=== PATIENT | female | born 1945 | race Hispanic/Latino ===

== ENCOUNTER 2017-10-04 04:24 | Emergency (ER) | payer MEDICARE, OTHER ==
[~2017-10-04] VITALS: Ht 152.4 cm; Wt 65.9 kg
[~2017-10-04 04:24] MED LIST: ALDACTONE25 MG PO; AMLODIPINE BESYL5 MG PO; AMLODIPINE10 MG PO; ASPIRIN EC81 MG PO; BUPROPION150 M4 PO; CARVEDILOL25 MG PO; K-DUR/KLOR-CON20 MEQ PO; LANTUS100 MG/ML SC; LASIX 20 MG20 MG/TAB PO; LEVEMIR1000 UNITS SC; LISINOPRIL20 M1 PO; LISINOPRIL20 MG PO; NOVOLO1 SC; NYSTATIN TOP; PREVACID15 M3 PO; SIMVASTATIN20 MG PO
[2017-10-04 05:03] LABS: HEMATOCRIT 37.5 % (37.0-47.0); HEMOGLOBIN 12.7 g/dl (12.0-16.0); IMMATURE GRANULOCYTES 0.3 % (0.0-1.0); MEAN CELL VOLUME 88.2 fL CALC (80.0-100.0); MEAN CORPUSCULAR HGB 29.9 pG CALC (26.0-32.0); MEAN CORPUSCULAR HGB CONC 33.9 g/L CALC (32.0-36.0); NEUT# 5.33 thou/uL (2.00-7.15); RED BLOOD COUNT 4.25 mill/uL (4.20-5.60); RED CELL DISTRI WIDTH 13.3 % (11.5-15.5); URINE BILIRUBIN - DIPSTICK NEGATIVE (NEGATIVE); URINE BLOOD DIPSTICK MODERATE (NEGATIVE); URINE COLOR YELLOW; URINE GLUCOSE - DIPSTICK >=1000 mg/dL (NEGATIVE); URINE KETONE NEGATIVE (NEGATIVE); URINE LEUK ESTERASE NEGATIVE (NEGATIVE); URINE NITRITE - DIPSTICK NEGATIVE (Negative); URINE PH 6.5 (4.5-8.0); URINE PROTEIN - DIPSTICK 100 mg/dL (NEG-TRACE)
[2017-10-04 05:09] LABS: URINE CLARITY SL CLOUDY
[2017-10-04 05:13] LABS: BARBITURATES NEGATIVE (NEGATIVE); COCAINE POSITIVE (NEGATIVE); METHADONE NEGATIVE (NEGATIVE); OXCYCODONE NEGATIVE (NEGATIVE); TETRAHYDROCANNABIONOL NEGATIVE (NEGATIVE); TRICYLIC ANTIDEPRESSANTS NEGATIVE (NEGATIVE)
[2017-10-04 05:19] LABS: ALBUMIN 3.5 g/dL (3.2-5.0); BILIRUBIN, TOTAL 0.8 mg/dL (0.0-1.4); CALCIUM 9.5 mg/dL (8.4-10.2); CREATININE 1.1 mg/dL (0.5-1.0); POTASSIUM 4.2 mmol/l (3.5-5.1); TOTAL PROTEIN 7.1 g/dL (6.3-8.2)
[2017-10-04 05:22] LABS: URINE BACTERIA FEW hpf; URINE MUCUS FEW hpf (NONE-FEW); URINE SQUAMOUS EPITHELIAL CELL FEW EPI/hpf (0-FEW)
[2017-10-04 05:41] LABS: PROTHROMBIN TIME 11.4 SECONDS (9.0-12.5)
[2017-10-04 10:46] VITALS: BP 155/72
== END 2017-10-04 10:46 | disposition short-term general hospital (02) ==
LOC: ED 04:24
PROVIDERS: Emergency Medicine
PROC: 0T9B70Z Drainage of Bladder with Drainage Device, Via Natural or Artificial Opening (ICD-10-PCS; principal; 2017-10-04)
DX: I63.9 Cerebral infarction, unspecified (principal); E11.65 Type 2 diabetes mellitus with hyperglycemia; I11.0 Hypertensive heart disease with heart failure; I50.9 Heart failure, unspecified; J44.9 Chronic obstructive pulmonary disease, unspecified; N28.9 Disorder of kidney and ureter, unspecified; I42.9 Cardiomyopathy, unspecified; F17.210 Nicotine dependence, cigarettes, uncomplicated

== ENCOUNTER 2018-01-05 17:30 | Inpatient (IN) | payer MEDICARE, OTHER ==
[~2018-01-05] VITALS: Ht 152.4 cm; Wt 61.2 kg
[2018-01-05 18:28] LABS: HEMATOCRIT 34.6 % (37.0-47.0); HEMOGLOBIN 11.6 g/dl (12.0-16.0); IMMATURE GRANULOCYTES 0.2 % (0.0-1.0); MEAN CELL VOLUME 91.1 fL CALC (80.0-100.0); MEAN CORPUSCULAR HGB 30.5 pG CALC (26.0-32.0); MEAN CORPUSCULAR HGB CONC 33.5 g/L CALC (32.0-36.0); NEUT# 4.08 thou/uL (2.00-7.15); RED BLOOD COUNT 3.8 mill/uL (4.20-5.60); RED CELL DISTRI WIDTH 13.5 % (11.5-15.5)
[2018-01-05 18:48] LABS: ALKALINE PHOSPHATASE 87 u/l (38-126); ANION GAP 11 (6-22 (CALC)); BILIRUBIN, TOTAL 0.4 mg/dL (0.0-1.4); BUN 30 mg/dL (8-23); BUN/CREATININE RATIO 32 (12-20 (CALC)); CARBON DIOXIDE 22 mmol/l (22-30); CHLORIDE 115 mmol/l (95-108); GFR 55 ML/MIN (>=60 (CALC)); GFR FOR AFR.AMER. > 60 ML/MIN (>=60 (CALC)); POTASSIUM 3.6 mmol/l (3.5-5.1); SGOT/AST 39 u/l (9-36); SGPT/ALT 40 u/l (11-66); SODIUM 143 mmol/l (137-146)
[2018-01-05 18:50] LABS: ALBUMIN 2.6 g/dL (3.2-5.0)
[2018-01-06] VITALS (7 sets, daily range): BP systolic 141–182; BP diastolic 40–76
[2018-01-06 09:27] LABS: HEMATOCRIT 29.7 % (37.0-47.0); MEAN CELL VOLUME 91.1 fL CALC (80.0-100.0); MEAN CORPUSCULAR HGB 30.7 pG CALC (26.0-32.0); MEAN CORPUSCULAR HGB CONC 33.7 g/L CALC (32.0-36.0); RED BLOOD COUNT 3.26 mill/uL (4.20-5.60); RED CELL DISTRI WIDTH 13.6 % (11.5-15.5)
[2018-01-06 09:47] LABS: MAGNESIUM 1.7 mg/dL (1.6-2.3)
[2018-01-06 13:52] LABS: URINE BILIRUBIN - DIPSTICK NEGATIVE (NEGATIVE); URINE BLOOD DIPSTICK TRACE-INTACT (NEGATIVE); URINE COLOR YELLOW; URINE GLUCOSE - DIPSTICK NEGATIVE (NEGATIVE); URINE KETONE NEGATIVE (NEGATIVE); URINE NITRITE - DIPSTICK NEGATIVE (Negative); URINE PH 8.5 (4.5-8.0); URINE PROTEIN - DIPSTICK 100 mg/dL (NEG-TRACE); URINE UROBILINOGEN - DIPSTICK 0.2 E.U./dL (0.2)
[2018-01-06 13:53] LABS: URINE CLARITY CLOUDY; URINE LEUK ESTERASE MODERATE (NEGATIVE)
[2018-01-06 13:54] LABS: URINE BACTERIA MANY hpf; URINE EPITHELIAL CELLS MODERATE EPI/hpf (0-FEW); URINE MUCUS FEW hpf (NONE-FEW); URINE RBC 0-2 RBC/hpf (0-5); URINE WBC 20-50 WBC/hpf (0-5)
[2018-01-06 14:35] LABS: CREATININE 1.1 mg/dL (0.5-1.0)
[2018-01-07] VITALS (7 sets, daily range): BP systolic 158–186; BP diastolic 57–75
[2018-01-07 05:10] LABS: HEMATOCRIT 29.4 % (37.0-47.0); HEMOGLOBIN 10.1 g/dl (12.0-16.0); IMMATURE GRANULOCYTES 0.3 % (0.0-1.0); MEAN CELL VOLUME 88.8 fL CALC (80.0-100.0); MEAN CORPUSCULAR HGB 30.5 pG CALC (26.0-32.0); MEAN CORPUSCULAR HGB CONC 34.4 g/L CALC (32.0-36.0); NEUT# 5.42 thou/uL (2.00-7.15); RED BLOOD COUNT 3.31 mill/uL (4.20-5.60)
[2018-01-07 05:39] LABS: CREATININE 1.3 mg/dL (0.5-1.0); POTASSIUM 4.8 mmol/l (3.5-5.1)
[2018-01-08] VITALS (9 sets, daily range): BP systolic 166–190; BP diastolic 43–75
[2018-01-08] MEDS ORDERED: ATIVAN0.5 MG PO (02:47)
[2018-01-08] MEDS ORDERED: CATAPRES0.1 MG PO (02:48)
[2018-01-08] MEDS ORDERED: AMLODIPINE5 MG PO (02:48)
[2018-01-08] MEDS ORDERED: ZESTRIL/PRINIV2.5 MG PO (02:49)
[2018-01-08] MEDS ORDERED: METOPROLOL SUCC50 MG PO (02:49)
[2018-01-08] MEDS ORDERED: XIFAXAN550 MG PO (02:50)
[2018-01-08] MEDS ORDERED: OXYBUTYNIN5 MG PO (02:50)
[2018-01-08] MEDS ORDERED: DOXAZOSIN2 M1 PO (02:50)
[2018-01-08] MEDS ORDERED: LACTULOSE10 GM/15 M PO (02:51)
[2018-01-08] MEDS ORDERED: PROAIR HFA108 MCG/AC (02:56)
[2018-01-08] MEDS ORDERED: LEVEMIR FL100 UNIT/M SC (02:57)
[2018-01-08 05:06] LABS: HEMATOCRIT 31.3 % (37.0-47.0); HEMOGLOBIN 10.7 g/dl (12.0-16.0); IMMATURE GRANULOCYTES 0.5 % (0.0-1.0); MEAN CELL VOLUME 90.2 fL CALC (80.0-100.0); MEAN CORPUSCULAR HGB 30.8 pG CALC (26.0-32.0); MEAN CORPUSCULAR HGB CONC 34.2 g/L CALC (32.0-36.0); NEUT# 8.23 thou/uL (2.00-7.15); RED BLOOD COUNT 3.47 mill/uL (4.20-5.60); RED CELL DISTRI WIDTH 13.3 % (11.5-15.5)
[2018-01-08 05:38] LABS: CREATININE 1.2 mg/dL (0.5-1.0)
[2018-01-08 05:46] LABS: MAGNESIUM 2.2 mg/dL (1.6-2.3); POTASSIUM 5.2 mmol/l (3.5-5.1)
[2018-01-09] VITALS (12 sets, daily range): BP systolic 138–203; BP diastolic 47–89
[2018-01-09 05:49] LABS: HEMATOCRIT 37.2 % (37.0-47.0); HEMOGLOBIN 12.2 g/dl (12.0-16.0); IMMATURE GRANULOCYTES 0.6 % (0.0-1.0); MEAN CELL VOLUME 92.5 fL CALC (80.0-100.0); MEAN CORPUSCULAR HGB 30.3 pG CALC (26.0-32.0); MEAN CORPUSCULAR HGB CONC 32.8 g/L CALC (32.0-36.0); NEUT# 7.8 thou/uL (2.00-7.15); RED BLOOD COUNT 4.02 mill/uL (4.20-5.60); RED CELL DISTRI WIDTH 13.6 % (11.5-15.5)
[2018-01-09 05:52] LABS: CREATININE 1.3 mg/dL (0.5-1.0); POTASSIUM 4.2 mmol/l (3.5-5.1)
[2018-01-09] MEDS ORDERED: MEDDOSEPAK PO (10:57)
[2018-01-09] MEDS ORDERED: ATIVAN0.5 MG PO (10:57)
[2018-01-09] MEDS ORDERED: LISINOPRIL20 M1 PO (10:57)
[2018-01-09] MEDS ORDERED: DOXYCYCL HYC100 MG PO (10:57)
[2018-01-09] MEDS ORDERED: QUETIAPINE FUMA25 MG PO (10:57)
[2018-01-09] MEDS ORDERED: VANTIN100 MG PO (11:01)
[2018-01-10] VITALS (8 sets, daily range): BP systolic 139–202; BP diastolic 52–74
== END 2018-01-10 18:15 | DRG 637 ==
LOC: ED 17:30 → ED-I 22:30 → ED 23:59 → MS2 01-06
PROVIDERS: Emergency Medicine; Nurse Practitioner Family; ADMIT Hospitalist; ATTEND Internal Medicine
DX: E11.649 Type 2 diabetes mellitus with hypoglycemia without coma (principal); G93.41 Metabolic encephalopathy; N39.0 Urinary tract infection, site not specified; I13.0 Hypertensive heart and chronic kidney disease with heart failure and stage 1 through stage 4 chronic kidney disease, or unspecified chronic kidney disease; I50.9 Heart failure, unspecified; E11.22 Type 2 diabetes mellitus with diabetic chronic kidney disease; E11.65 Type 2 diabetes mellitus with hyperglycemia; I42.9 Cardiomyopathy, unspecified; N18.3 Chronic kidney disease, stage 3 (moderate); J44.1 Chronic obstructive pulmonary disease with (acute) exacerbation; I16.0 Hypertensive urgency; F17.210 Nicotine dependence, cigarettes, uncomplicated; D63.8 Anemia in other chronic diseases classified elsewhere; F03.90 Unspecified dementia, unspecified severity, without behavioral disturbance, psychotic disturbance, mood disturbance, and anxiety; K70.40 Alcoholic hepatic failure without coma; F10.11 Alcohol abuse, in remission; B96.4 Proteus (mirabilis) (morganii) as the cause of diseases classified elsewhere; Z79.4 Long term (current) use of insulin
CPT/HCPCS: G0378

== ENCOUNTER 2018-03-09 13:23 | Inpatient (IN) | payer MEDICARE, OTHER ==
[~2018-03-09] VITALS: Ht 152.4 cm; Wt 53.0 kg
[~2018-03-09 13:23] MED LIST changes: +AMLODIPINE5 MG PO; +ATIVAN0.5 MG PO; +CATAPRES0.1 MG PO; +DOXAZOSIN2 M1 PO; +DOXYCYCL HYC100 MG PO; +LACTULOSE10 GM/15 M PO; +LEVEMIR FL100 UNIT/M SC; +MEDDOSEPAK PO; +METOPROLOL SUCC50 MG PO; +OXYBUTYNIN5 MG PO; +PROAIR HFA108 MCG/AC; +QUETIAPINE FUMA25 MG PO; +VANTIN100 MG PO; +XIFAXAN550 MG PO; +ZESTRIL/PRINIV2.5 MG PO
--- NOTE | 2018-03-09 13:23 | NUR ---
TO ROOM 15 VIA STRETCHER BY EMS
--- NOTE | 2018-03-09 14:07 | NUR ---
PT STATES THAT HER TOE HAS BEEN BLACKENED FOR A WEEK. PT IS AOX2, PT IS NORMAL MENTATION PER EMS AND FLAT GRINDER OPERATOR. PT DENIES ANY SOB, N/V OR C/P, PT HAS POOR SKIN CONDITION OF LOWER EXTREMITES. PT HAS A WET COUGH.
[2018-03-09 14:14] LABS: HEMATOCRIT 32.8 % (37.0-47.0); HEMOGLOBIN 11.1 g/dl (12.0-16.0); IMMATURE GRANULOCYTES 0.4 % (0.0-1.0); MEAN CELL VOLUME 89.1 fL CALC (80.0-100.0); MEAN CORPUSCULAR HGB 30.2 pG CALC (26.0-32.0); MEAN CORPUSCULAR HGB CONC 33.8 g/L CALC (32.0-36.0); NEUT# 5.61 thou/uL (2.00-7.15); RED BLOOD COUNT 3.68 mill/uL (4.20-5.60); RED CELL DISTRI WIDTH 13.7 % (11.5-15.5)
[2018-03-09] MEDS ORDERED: ZESTRIL40 MG PO (14:18)
[2018-03-09] MEDS ORDERED: ASPIRIN81 MG PO (14:19)
[2018-03-09] MEDS ORDERED: MAXZIDE-2537.5 MG/TA PO (14:19)
[2018-03-09 14:30] LABS: ALBUMIN 3.1 g/dL (3.2-5.0); BILIRUBIN, TOTAL 0.8 mg/dL (0.0-1.4); CREATININE 1.3 mg/dL (0.5-1.0); POTASSIUM 4.9 mmol/l (3.5-5.1)
--- NOTE | 2018-03-09 15:07 | NUR ---
PT RESTING ON STRETCHER WITH FLUIDS RUNNING, IV PATENT, PT STATES NO COMPLAINTS AT THIS TIME. VITALS BEING CONTINUOULY MONITORED.
--- NOTE | 2018-03-09 15:27 | NUR ---
PT PLACED ON BED MURPHY AND PROVIDED URINE SAMPLE
--- NOTE | 2018-03-09 16:02 | NUR ---
SPOKE WITH [facility]- RN STATES DR SARAVIA IS ON THE FLOOR AND REVIEWING BLOOD FLOW STUDY, IF THEIR IS BLOOD FLOW INSUFFIENCY HE WANTS THE PT TRANSFERRED ER-ER.
[2018-03-09 16:11] LABS: URINE BILIRUBIN - DIPSTICK NEGATIVE (NEGATIVE); URINE BLOOD DIPSTICK NEGATIVE (NEGATIVE); URINE COLOR YELLOW; URINE GLUCOSE - DIPSTICK >=1000 mg/dL (NEGATIVE); URINE KETONE NEGATIVE (NEGATIVE); URINE LEUK ESTERASE NEGATIVE (NEGATIVE); URINE NITRITE - DIPSTICK NEGATIVE (Negative); URINE PH 5.5 (4.5-8.0); URINE PROTEIN - DIPSTICK 30 mg/dL (NEG-TRACE); URINE SPECIFIC GRAVITY <=1.005; URINE UROBILINOGEN - DIPSTICK 0.2 E.U./dL (0.2)
[2018-03-09 16:12] LABS: URINE CLARITY CLEAR
--- NOTE | 2018-03-09 16:35 | NUR ---
PT RETURNED FROM U/S. SIGNAL TOWER OPERATOR AT BEDSIDE FOR EXAM
--- NOTE | 2018-03-09 17:10 | NUR ---
PT ADMITTED TO [facility] VIA STRETCHER ACCOMPANIED BY STAFF. PT ALERT TO SELF AND PLACE ABLE TO ANSWER SOME QUESTIONS. PT HAS DENUDED/REDNESS TO BUTTOCK AND CARISSA AREA. PHOTOS OBTAINED SEE CHART. PT STATES SHE HAS NOT HAD A BM IN A WEEK ORDERS PROVIDED BY . STAT GLUCOSE OBTAINED 452. PT HAS A NON-PRODUCTIVE COUGH. PT PROVIDED WITH A DINNER TRAY, ABLE TO FEED SELF. ADMISSION ASSESSMENT COMPLETED. CALL LIGHT IN REACH, BED ALARM X1, CONTINUE TO MONITOR.
--- NOTE | 2018-03-09 17:15 | NUR ---
Admission Note Report Given to: JOSE C PARKER Transported by: Wheelchair X Stretcher Transported with: X Nurse Transporter X Patent IV O2 Bobcat Operator PT TRANSPORTED TO [facility] WITHOUT INCIDENT
[2018-03-09 17:26] VITALS: BP 153/46
[2018-03-09 19:00] VITALS: BP 168/57
--- NOTE | 2018-03-09 19:30 | NUR ---
PATIENT RESTING IN BED-AWAKE ALERT-ORIENTED TO PERSON WITH FLAT AFFECT. NOT APPROPRIATE WHEN ASKED QUESTIONS. FLAT AFFECT-FINISHED MIRALAX ORDERED. IV SITE TO RIGHT UPPER ARM INTACT AND APPEARS HEALTHY AT THIS TIME WITH IVF NS PATENT AND INFUSING AT 100CC/HR. DRESSING TO RIGHT FOOT CDI AT THIS TIME. FOUL ODOR NOTED FROM RIGHT FOOT. SAFETY PRECAUTIONS REINFORCED. BED ALARM IN PLACE FOR PATIENT SAFETY. CALL LIGHT IN REACH. WILL CONT TO MONITOR.
--- NOTE | 2018-03-09 21:10 | NUR ---
PATIENT RESTING IN BED-BS-411. COVERED WITH 10 UNITS OF NOVALOG PER SLIDING SCALE COVERAGE. HS SNACK PROVIDED. DR. SHARP NOTIFIED OF ELEVATED BS. PATIENT WITH NO COMPLAINTS. SAFETY PRRECAUTIONS REINFORCED. CALL LIGHT IN REACH. WILL CONT TO MONITOR.
[2018-03-09 21:59] LABS: URINE MUCUS FEW hpf (NONE-FEW); URINE SQUAMOUS EPITHELIAL CELL FEW EPI/hpf (0-FEW)
--- NOTE | 2018-03-10 00:12 | NUR ---
PATIENT APPEARS SLEEPING AT THIS TIME WITH HOB ELEVATED AND EYES CLOSED. BED ALARMS IN PLACE. IVF PATENT AND INFUSING AT 100CC/HR. BED ALARMS IN PLACE. CALL LIGHT IN REACH. WILL CONT TO MONITOR.
--- NOTE | 2018-03-10 03:29 | NUR ---
PATIENT FOUND TRYING TO GET OUT THE SIDE OF THE BED. PATIENT FOUND TO BE INCONT OF MODERATE AMT OF URINE. PATIENT IS MAX ASSIST TO THE BSC. BED LINENS WERE CHANGED. PATIENT WAS BATHED AND CARISSA-CARE GIVEN. PATIENT WITH EXCORIATED AREA OF BUTTOCKS, THIGHS AND PERINEAL AREA. WASHED THROUGHLY WITH SOAP AND WATER. MAX ASSIST BACK TO THE BED. BARRIER CREAM APPLIED TO AFFECTED AREA. FINGER NAILS WERE CLEANED USING ORANGE STICK. PATIENT CONT TO ANSWER QUESTIONS WITH ONE WORD ANSWERS. MOSTLY NON-VERBAL. IVF NS PATENT AND INFUSING RIGHT UPPER ARM SITE. REMAINS HEALTHY AT THIS TIME. BED ALARMS IN PLACE. CALL LIGHT IN REACH. WILL CONT TO MONITOR.
[2018-03-10 04:09] VITALS: BP 169/64
--- NOTE | 2018-03-10 04:51 | NUR ---
PATIENT IS MORE ALERT THIS MORNING-ANSWERING QUESTIONS WHEN ASKED. ORIENTED TO PERSON AND PLACE. TAKING ALEXANDRA CRACKER AND PO FLUIDS WHEN OFFERED. DRESSING TO RIGHT FOOT REMAINS INTACT SECURED WITH SLIPPER SOCK. IVF NS PATENT AND INFUSING AT 100CC/HR VIA RIGHT UPPER ARM SITE. SITE APPEARS HEALTHY AT THIS TIME. BED ALARM IN PLACE FOR PATIENT SAFETY. CALL LIGHT IN REACH. WILL CONT TO MONITOR.
[2018-03-10 05:11] LABS: HEMATOCRIT 31.1 % (37.0-47.0); HEMOGLOBIN 10.7 g/dl (12.0-16.0); MEAN CELL VOLUME 87.1 fL CALC (80.0-100.0); MEAN CORPUSCULAR HGB CONC 34.4 g/L CALC (32.0-36.0); RED BLOOD COUNT 3.57 mill/uL (4.20-5.60); RED CELL DISTRI WIDTH 13.7 % (11.5-15.5)
[2018-03-10 05:25] LABS: CREATININE 1.2 mg/dL (0.5-1.0); POTASSIUM 4.4 mmol/l (3.5-5.1)
--- NOTE | 2018-03-10 05:44 | NUR ---
GLUCOSE 43 ON LAB DRAW. [id number]. PATIENT AWAKE ALERT. SKIN IS WARM AND DRY. PATIENT TAKING OJ 6OZ WITH SUGAR PACKETS WITH ALEXANDRA CRACKERS AND PEANUT NUT. WILL RECHECK IN [address] FOR PATIENT SAFETY. WILL CONT TO MONITOR.
--- NOTE | 2018-03-10 06:15 | NUR ---
BS-121 AT THIS TIME-WILL CONT TO MONITOR. BED ALARM IN PLACE FOR PATIENT SAFETY. CALL LIGHT IN REACH. WILL CONT TO MONITOR.
[2018-03-10 07:25] VITALS: BP 125/41
--- NOTE | 2018-03-10 07:25 | NUR ---
PT IS RESTING WITH EYES CLOSED. IV SITE IS FREE FROM REDNESS OR EDEMA. HR IS REG, PULSES ARE STRONG X4, ABD IS SOFT WITH ACTIVE BS. DRESSING ON R FOOT IS CDI. CONTINUE TO OBSERVE AND MONITOR.
--- NOTE | 2018-03-10 12:00 | NUR ---
PT IS RELAXING IN BED WITH NO DISTRESS NOTED. IV SITE IS FREE FROM REDNESS OR EDEMA,
[2018-03-10 15:21] VITALS: BP 145/52
--- NOTE | 2018-03-10 15:30 | NUR ---
PT WILL BE PICKED UP AT 1630 FOR TRANSPORT TO [facility].
--- NOTE | 2018-03-10 15:34 | NUR ---
SPOKE WITH SISTER RE: PT BEING TRANSPORTED TO [facility] AROUND 1630. WANTS TO BE CALLED WHEN SHE ARRIVES THERE.
--- NOTE | 2018-03-10 18:48 | NUR ---
GAVE REPORT TO BISHNU KNOX AT [facility]. IV SITE IS FLUSHED. [facility] HERE TO TRANSPORT PT. Discharge instructions given. Patient verbalizes understanding of same. Discharged in stable condition via Medical Transport to *Other with *Other. All belongings sent with pt.
--- NOTE | 2018-03-10 18:53 | NUR ---
INFORMED SISTER RE PT LEAVING WITH [facility]
== END 2018-03-10 18:54 | DRG 300 ==
LOC: ED 13:23 → ED-I 14:36 → ED 15:02 → MS2 15:03
PROVIDERS: Emergency Medicine; ADMIT Internal Medicine; ATTEND Internal Medicine
DX: E11.52 Type 2 diabetes mellitus with diabetic peripheral angiopathy with gangrene (principal); I96 Gangrene, not elsewhere classified; I16.0 Hypertensive urgency; I13.0 Hypertensive heart and chronic kidney disease with heart failure and stage 1 through stage 4 chronic kidney disease, or unspecified chronic kidney disease; E11.42 Type 2 diabetes mellitus with diabetic polyneuropathy; E11.22 Type 2 diabetes mellitus with diabetic chronic kidney disease; I50.9 Heart failure, unspecified; I42.9 Cardiomyopathy, unspecified; E11.65 Type 2 diabetes mellitus with hyperglycemia; E11.621 Type 2 diabetes mellitus with foot ulcer; J44.9 Chronic obstructive pulmonary disease, unspecified; F17.210 Nicotine dependence, cigarettes, uncomplicated; N18.3 Chronic kidney disease, stage 3 (moderate); L97.519 Non-pressure chronic ulcer of other part of right foot with unspecified severity; L97.529 Non-pressure chronic ulcer of other part of left foot with unspecified severity; D63.1 Anemia in chronic kidney disease; F03.90 Unspecified dementia, unspecified severity, without behavioral disturbance, psychotic disturbance, mood disturbance, and anxiety; Z79.4 Long term (current) use of insulin; Z91.14 Patient's other noncompliance with medication regimen

== ENCOUNTER 2018-06-23 15:37 | Emergency (ER) | payer MEDICARE, OTHER ==
[~2018-06-23] VITALS: Ht 152.4 cm; Wt 63.6 kg
[~2018-06-23 15:37] MED LIST changes: +ASPIRIN81 MG PO; +MAXZIDE-2537.5 MG/TA PO; +ZESTRIL40 MG PO
[2018-06-23 16:27] LABS: HEMATOCRIT 29.1 % (37.0-47.0); HEMOGLOBIN 9.8 g/dl (12.0-16.0); IMMATURE GRANULOCYTES 0.5 % (0.0-5.0); MEAN CORPUSCULAR HGB 32.5 pG CALC (26.0-32.0); MEAN CORPUSCULAR HGB CONC 33.7 g/L CALC (32.0-36.0); NEUT# 3.9 thou/uL (2.00-7.15); RED BLOOD COUNT 3.02 mill/uL (4.20-5.60); RED CELL DISTRI WIDTH 13.2 % (11.5-15.5)
[2018-06-23 16:28] LABS: MEAN CELL VOLUME 96.4 fL CALC (80.0-100.0)
[2018-06-23 16:37] LABS: ALBUMIN 2.9 g/dL (3.2-5.0); ALKALINE PHOSPHATASE 111 u/l (38-126); ANION GAP 11 (6-22 (CALC)); BILIRUBIN, TOTAL 0.3 mg/dL (0.0-1.4); BUN 20 mg/dL (8-23); BUN/CREATININE RATIO 26 (12-20 (CALC)); CARBON DIOXIDE 25 mmol/l (22-30); CHLORIDE 113 mmol/l (95-108); CREATININE 0.8 mg/dL (0.5-1.0); GFR > 60 ML/MIN (>=60 (CALC)); GFR FOR AFR.AMER. > 60 ML/MIN (>=60 (CALC)); POTASSIUM 3.8 mmol/l (3.5-5.1); SGOT/AST 44 u/l (9-36); SGPT/ALT 46 u/l (11-66); TOTAL PROTEIN 6.3 g/dL (6.3-8.2)
[2018-06-23 16:40] LABS: SODIUM 145 mmol/l (137-146)
[2018-06-23 19:38] VITALS: BP 173/64
== END 2018-06-23 19:39 ==
LOC: ED 15:37
PROVIDERS: Emergency Medicine
DX: T87.44 Infection of amputation stump, left lower extremity (principal); J06.9 Acute upper respiratory infection, unspecified; E11.9 Type 2 diabetes mellitus without complications; J44.9 Chronic obstructive pulmonary disease, unspecified; I11.0 Hypertensive heart disease with heart failure; I50.9 Heart failure, unspecified; I42.9 Cardiomyopathy, unspecified; F17.210 Nicotine dependence, cigarettes, uncomplicated; Y83.5 Amputation of limb(s) as the cause of abnormal reaction of the patient, or of later complication, without mention of misadventure at the time of the procedure; Z89.422 Acquired absence of other left toe(s); Z89.611 Acquired absence of right leg above knee

== ENCOUNTER → 2018-12-10 | Outpatient (REF) | payer MEDICARE, OTHER ==
[2018-12-10 12:23] LABS: HEMATOCRIT 38.9 % (37.0-47.0); HEMOGLOBIN 13.1 g/dl (12.0-16.0); IMMATURE GRANULOCYTES 0.2 % (0.0-5.0); MEAN CELL VOLUME 91.7 fL CALC (80.0-100.0); MEAN CORPUSCULAR HGB 30.9 pG CALC (26.0-32.0); MEAN CORPUSCULAR HGB CONC 33.7 g/L CALC (32.0-36.0); NEUT# 3.18 thou/uL (2.00-7.15); RED BLOOD COUNT 4.24 mill/uL (4.20-5.60); RED CELL DISTRI WIDTH 12.9 % (11.5-15.5)
[2018-12-10 12:44] LABS: ALBUMIN 3.4 g/dL (3.2-5.0); ALKALINE PHOSPHATASE 101 u/l (38-126); ANION GAP 12 (6-22 (CALC)); BILIRUBIN, TOTAL 0.7 mg/dL (0.0-1.4); BUN 28 mg/dL (8-23); BUN/CREATININE RATIO 26 (12-20 (CALC)); CALCULATED LDLCHOLESTEROL 50 mg/dL (62-129 (CALC)); CARBON DIOXIDE 30 mmol/l (22-30); CHLORIDE 100 mmol/l (95-108); CHOLESTEROL HDL RATIO 1.9 (<4.4 (CALC)); CREATININE 1.1 mg/dL (0.5-1.0); GFR 49 ML/MIN (>=60 (CALC)); GFR FOR AFR.AMER. 59 ML/MIN (>=60 (CALC)); HDL CHOLESTEROL 70 mg/dL (>=40); POTASSIUM 4.3 mmol/l (3.5-5.1); SGOT/AST 38 u/l (9-36); SODIUM 138 mmol/l (137-146); TOTAL CHOLESTEROL 136 mg/dl (0-199); TOTAL PROTEIN 6.7 g/dL (6.3-8.2); TOTAL TRIGLYCERIDES 77 mg/dl (30-149); VLDL CHOLESTROL 15 mg/dl (0-48 (CALC))
[2018-12-10 13:15] LABS: TSH, 3RD GENERATION 1.77 uIU/mL (0.47 - 4.68)
== END | disposition home or self-care (01) ==
LOC: LAB 10:26
PROVIDERS: ATTEND Internal Medicine
DX: E78.00 Pure hypercholesterolemia, unspecified (principal); E11.9 Type 2 diabetes mellitus without complications; J44.9 Chronic obstructive pulmonary disease, unspecified; Z11.59 Encounter for screening for other viral diseases

== ENCOUNTER 2019-04-19 08:48 | Observation (INO) | payer MEDICARE, OTHER ==
[~2019-04-19] VITALS: Ht 152.4 cm; Wt 52.0 kg
[2019-04-19 09:22] LABS: HEMATOCRIT 36.7 % (37.0-47.0); HEMOGLOBIN 12.3 g/dl (12.0-16.0); IMMATURE GRANULOCYTES 0.4 % (0.0-5.0); MEAN CELL VOLUME 94.6 fL CALC (80.0-100.0); MEAN CORPUSCULAR HGB 31.7 pG CALC (26.0-32.0); MEAN CORPUSCULAR HGB CONC 33.5 g/L CALC (32.0-36.0); NEUT# 4.07 thou/uL (2.00-7.15); RED BLOOD COUNT 3.88 mill/uL (4.20-5.60); RED CELL DISTRI WIDTH 13.2 % (11.5-15.5)
[2019-04-19 09:30] LABS: ALBUMIN 3.7 g/dL (3.2-5.0); ALKALINE PHOSPHATASE 87 u/l (38-126); ANION GAP 12 (6-22 (CALC)); BILIRUBIN, TOTAL 0.5 mg/dL (0.0-1.4); BUN 32 mg/dL (8-23); BUN/CREATININE RATIO 40 (12-20 (CALC)); CHLORIDE 109 mmol/l (95-108); CREATININE 0.8 mg/dL (0.5-1.0); GFR > 60 ML/MIN (>=60 (CALC)); GFR FOR AFR.AMER. > 60 ML/MIN (>=60 (CALC)); SGOT/AST 47 u/l (9-36); SODIUM 138 mmol/l (137-146); TOTAL PROTEIN 7.4 g/dL (6.3-8.2)
[2019-04-19 09:32] LABS: CARBON DIOXIDE 21 mmol/l (22-30)
[2019-04-19 10:19] LABS: URINE BILIRUBIN - DIPSTICK NEGATIVE (NEGATIVE); URINE BLOOD DIPSTICK SMALL (NEGATIVE); URINE COLOR YELLOW; URINE GLUCOSE - DIPSTICK 250 mg/dL (NEGATIVE); URINE KETONE NEGATIVE (NEGATIVE); URINE LEUK ESTERASE TRACE (Negative); URINE NITRITE - DIPSTICK POSITIVE (Negative); URINE PH 5.5 (4.5-8.0); URINE PROTEIN - DIPSTICK 100 mg/dL (NEG-TRACE); URINE UROBILINOGEN - DIPSTICK 0.2 E.U./dL (0.2)
[2019-04-19 10:21] LABS: URINE CLARITY CLOUDY
[2019-04-19 10:25] LABS: URINE BACTERIA MANY hpf; URINE SQUAMOUS EPITHELIAL CELL FEW EPI/hpf (0-FEW)
[2019-04-19 13:15] VITALS: BP 190/75
[2019-04-19 14:26] VITALS: BP 169/61
[2019-04-19 16:14] VITALS: BP 150/68
[2019-04-19 19:00] VITALS: BP 142/53
[2019-04-19 23:42] VITALS: BP 138/57
[2019-04-20] VITALS (7 sets, daily range): BP systolic 123–163; BP diastolic 46–62
[2019-04-20 04:52] LABS: IMMATURE GRANULOCYTES 0.2 % (0.0-5.0); MEAN CELL VOLUME 95.2 fL CALC (80.0-100.0); MEAN CORPUSCULAR HGB 32.2 pG CALC (26.0-32.0); MEAN CORPUSCULAR HGB CONC 33.8 g/L CALC (32.0-36.0); NEUT# 2.89 thou/uL (2.00-7.15); RED BLOOD COUNT 3.11 mill/uL (4.20-5.60); RED CELL DISTRI WIDTH 13.4 % (11.5-15.5)
[2019-04-20 04:56] LABS: HEMATOCRIT 29.6 % (37.0-47.0)
[2019-04-20 05:14] LABS: ANION GAP 10 (6-22 (CALC)); BUN 28 mg/dL (8-23); BUN/CREATININE RATIO 32 (12-20 (CALC)); CARBON DIOXIDE 20 mmol/l (22-30); CHLORIDE 110 mmol/l (95-108); CREATININE 0.9 mg/dL (0.5-1.0); GFR > 60 ML/MIN (>=60 (CALC)); GFR FOR AFR.AMER. > 60 ML/MIN (>=60 (CALC)); MAGNESIUM 1.9 mg/dL (1.6-2.3); POTASSIUM 3.8 mmol/l (3.5-5.1); SODIUM 136 mmol/l (137-146)
[2019-04-20] MEDS ORDERED: LACTULOSE PO (13:46)
[2019-04-20] MEDS ORDERED: VENTOLIN HFA IN (13:47)
[2019-04-20] MEDS ORDERED: ADVAIR DISK1 IN (13:48)
[2019-04-20] MEDS ORDERED: FUROSEMIDE20 MG PO (13:48)
[2019-04-20] MEDS ORDERED: LEVEMIR100 UNIT/M SC (13:48)
[2019-04-20] MEDS ORDERED: NORVASC5 M1 PO (13:49)
[2019-04-20] MEDS ORDERED: LISINOPRIL20 MG PO (13:49)
[2019-04-20] MEDS ORDERED: NOVOLOG100 UNIT/M SC (13:50)
[2019-04-20] MEDS ORDERED: CLONIDINE0.1 MG PO (13:51)
[2019-04-20] MEDS ORDERED: LIPITOR40 M1 PO (13:52)
[2019-04-21] VITALS (9 sets, daily range): BP systolic 145–189; BP diastolic 47–81
[2019-04-22 03:53] VITALS: BP 136/56
[2019-04-22 07:20] VITALS: BP 193/54
[2019-04-22] MEDS ORDERED: KEFLEX500 MG PO (08:18)
[2019-04-22 11:06] VITALS: BP 180/60
[2019-04-22 13:00] VITALS: BP 153/70
== END 2019-04-22 15:54 | disposition home health service (06) ==
LOC: ED 08:48 → ED-I 11:26 → ED 12:00 → MS2 12:01
PROVIDERS: Emergency Medicine; Nurse Practitioner Family; ADMIT Internal Medicine; ATTEND Internal Medicine
DX: E11.649 Type 2 diabetes mellitus with hypoglycemia without coma (principal); N39.0 Urinary tract infection, site not specified; I16.0 Hypertensive urgency; I13.0 Hypertensive heart and chronic kidney disease with heart failure and stage 1 through stage 4 chronic kidney disease, or unspecified chronic kidney disease; I42.9 Cardiomyopathy, unspecified; I50.9 Heart failure, unspecified; E11.22 Type 2 diabetes mellitus with diabetic chronic kidney disease; N18.3 Chronic kidney disease, stage 3 (moderate); F03.90 Unspecified dementia, unspecified severity, without behavioral disturbance, psychotic disturbance, mood disturbance, and anxiety; G93.41 Metabolic encephalopathy; E11.51 Type 2 diabetes mellitus with diabetic peripheral angiopathy without gangrene; B96.20 Unspecified Escherichia coli [E. coli] as the cause of diseases classified elsewhere; J43.9 Emphysema, unspecified; F17.200 Nicotine dependence, unspecified, uncomplicated; Z89.612 Acquired absence of left leg above knee; Z79.4 Long term (current) use of insulin; Z89.611 Acquired absence of right leg above knee
CPT/HCPCS: J1650

== ENCOUNTER 2019-06-01 08:05 | Observation (INO) | payer MEDICARE, OTHER ==
[~2019-06-01] VITALS: Ht 152.4 cm; Wt 52.4 kg
[~2019-06-01 08:05] MED LIST changes: +ADVAIR DISK1 IN; +CLONIDINE0.1 MG PO; +FUROSEMIDE20 MG PO; +KEFLEX500 MG PO; +LACTULOSE PO; +LEVEMIR100 UNIT/M SC; +LIPITOR40 M1 PO; +NORVASC5 M1 PO; +NOVOLOG100 UNIT/M SC; +VENTOLIN HFA IN
[2019-06-01 09:20] LABS: HEMATOCRIT 34.3 % (37.0-47.0); HEMOGLOBIN 11.7 g/dl (12.0-16.0); IMMATURE GRANULOCYTES 0.5 % (0.0-5.0); MEAN CELL VOLUME 93.5 fL CALC (80.0-100.0); MEAN CORPUSCULAR HGB 31.9 pG CALC (26.0-32.0); MEAN CORPUSCULAR HGB CONC 34.1 g/L CALC (32.0-36.0); NEUT# 5.7 thou/uL (2.00-7.15); RED BLOOD COUNT 3.67 mill/uL (4.20-5.60); RED CELL DISTRI WIDTH 13.3 % (11.5-15.5)
[2019-06-01 09:33] LABS: ALBUMIN 3.7 g/dL (3.2-5.0); ALKALINE PHOSPHATASE 103 u/l (38-126); ANION GAP 14 (6-22 (CALC)); BUN 32 mg/dL (8-23); BUN/CREATININE RATIO 32 (12-20 (CALC)); CARBON DIOXIDE 19 mmol/l (22-30); CHLORIDE 112 mmol/l (95-108); GFR 54 ML/MIN (>=60 (CALC)); GFR FOR AFR.AMER. > 60 ML/MIN (>=60 (CALC)); POTASSIUM 4.4 mmol/l (3.5-5.1); SGOT/AST 45 u/l (9-36); SODIUM 141 mmol/l (137-146); TOTAL PROTEIN 7.6 g/dL (6.3-8.2)
[2019-06-01 10:58] LABS: URINE BILIRUBIN - DIPSTICK NEGATIVE (NEGATIVE); URINE BLOOD DIPSTICK MODERATE (NEGATIVE); URINE COLOR YELLOW; URINE GLUCOSE - DIPSTICK 100 mg/dL (NEGATIVE); URINE KETONE TRACE mg/dL (NEGATIVE); URINE NITRITE - DIPSTICK NEGATIVE (Negative); URINE PH 5.5 (4.5-8.0); URINE PROTEIN - DIPSTICK 100 mg/dL (NEG-TRACE); URINE SPECIFIC GRAVITY >=1.030
[2019-06-01 11:07] LABS: URINE LEUK ESTERASE TRACE (NEGATIVE)
[2019-06-01 11:08] LABS: BARBITURATES NEGATIVE (NEGATIVE); COCAINE NEGATIVE (NEGATIVE); METHADONE NEGATIVE (NEGATIVE); OXCYCODONE NEGATIVE (NEGATIVE); TETRAHYDROCANNABIONOL NEGATIVE (NEGATIVE); TRICYLIC ANTIDEPRESSANTS NEGATIVE (NEGATIVE); URINE EPITHELIAL CELLS MANY EPI/hpf (0-FEW); URINE WBC 0-2 WBC/hpf (0-5)
[2019-06-01 13:22] VITALS: BP 193/60
[2019-06-01 15:10] VITALS: BP 173/60
[2019-06-01 18:55] VITALS: BP 133/49
[2019-06-01 20:29] VITALS: BP 148/59
[2019-06-02] VITALS (7 sets, daily range): BP systolic 152–194; BP diastolic 55–71
[2019-06-02 05:15] LABS: HEMATOCRIT 31.7 % (37.0-47.0); HEMOGLOBIN 10.6 g/dl (12.0-16.0); IMMATURE GRANULOCYTES 0.5 % (0.0-5.0); MEAN CELL VOLUME 95.2 fL CALC (80.0-100.0); MEAN CORPUSCULAR HGB 31.8 pG CALC (26.0-32.0); MEAN CORPUSCULAR HGB CONC 33.4 g/L CALC (32.0-36.0); NEUT# 5.72 thou/uL (2.00-7.15); RED BLOOD COUNT 3.33 mill/uL (4.20-5.60); RED CELL DISTRI WIDTH 13.6 % (11.5-15.5)
[2019-06-02 05:21] LABS: ALBUMIN 3.2 g/dL (3.2-5.0); BILIRUBIN, TOTAL 0.9 mg/dL (0.0-1.4); CREATININE 1.2 mg/dL (0.5-1.0); TOTAL PROTEIN 6.6 g/dL (6.3-8.2)
[2019-06-02] MEDS ORDERED: ADVAIR DISK1 IN (12:42)
[2019-06-02] MEDS ORDERED: AMLODIPINE BESY10 MG PO (12:43)
[2019-06-02] MEDS ORDERED: LIPITOR40 M1 PO (12:46)
[2019-06-02] MEDS ORDERED: CLONIDINE HYDR0.1 M1 PO (12:48)
[2019-06-02] MEDS ORDERED: LASIX 40 MG TAB40 MG PO (12:50)
[2019-06-02] MEDS ORDERED: LACTULOSE10 GM/15 M PO (12:52)
[2019-06-02] MEDS ORDERED: LEVEMIR FL100 UNIT/M SC (12:54)
[2019-06-02] MEDS ORDERED: NOVOLOG FL100 UNIT/M SC (12:56)
[2019-06-02] MEDS ORDERED: QUETIAPINE FUMA25 MG (12:56)
[2019-06-02] MEDS ORDERED: VENTOLIN HFA IN (13:00)
[2019-06-03 01:22] VITALS: BP 178/71
[2019-06-03 03:51] VITALS: BP 187/72
[2019-06-03 05:15] VITALS: BP 173/58
[2019-06-03 05:18] LABS: HEMATOCRIT 31.6 % (37.0-47.0); HEMOGLOBIN 10.5 g/dl (12.0-16.0); MEAN CELL VOLUME 94.3 fL CALC (80.0-100.0); MEAN CORPUSCULAR HGB 31.3 pG CALC (26.0-32.0); MEAN CORPUSCULAR HGB CONC 33.2 g/L CALC (32.0-36.0); RED BLOOD COUNT 3.35 mill/uL (4.20-5.60); RED CELL DISTRI WIDTH 13.4 % (11.5-15.5)
[2019-06-03 05:29] LABS: ANION GAP 11 (6-22 (CALC)); BUN 36 mg/dL (8-23); BUN/CREATININE RATIO 38 (12-20 (CALC)); CARBON DIOXIDE 21 mmol/l (22-30); CHLORIDE 110 mmol/l (95-108); CREATININE 0.9 mg/dL (0.5-1.0); GFR > 60 ML/MIN (>=60 (CALC)); GFR FOR AFR.AMER. > 60 ML/MIN (>=60 (CALC)); POTASSIUM 4.2 mmol/l (3.5-5.1); SODIUM 137 mmol/l (137-146)
[2019-06-03 07:50] VITALS: BP 105/39
[2019-06-03 11:40] VITALS: BP 134/56
[2019-06-03] MEDS ORDERED: TRAMADOL HCL50 MG PO (11:43)
== END 2019-06-03 15:15 | disposition home health service (06) ==
LOC: ED 08:05 → ED-I 11:30 → ED 11:50 → MS2 11:51
PROVIDERS: Emergency Medicine; Internal Medicine; ADMIT Internal Medicine; ATTEND Internal Medicine
PROC: 0T9B70Z Drainage of Bladder with Drainage Device, Via Natural or Artificial Opening (ICD-10-PCS; principal; 2019-06-01)
DX: S72.141A Displaced intertrochanteric fracture of right femur, initial encounter for closed fracture (principal); I16.0 Hypertensive urgency; I13.0 Hypertensive heart and chronic kidney disease with heart failure and stage 1 through stage 4 chronic kidney disease, or unspecified chronic kidney disease; I50.9 Heart failure, unspecified; E11.22 Type 2 diabetes mellitus with diabetic chronic kidney disease; N18.3 Chronic kidney disease, stage 3 (moderate); E11.65 Type 2 diabetes mellitus with hyperglycemia; E11.51 Type 2 diabetes mellitus with diabetic peripheral angiopathy without gangrene; J43.9 Emphysema, unspecified; I42.9 Cardiomyopathy, unspecified; F03.90 Unspecified dementia, unspecified severity, without behavioral disturbance, psychotic disturbance, mood disturbance, and anxiety; R21 Rash and other nonspecific skin eruption; F17.200 Nicotine dependence, unspecified, uncomplicated; W05.0XXA Fall from non-moving wheelchair, initial encounter; Z89.612 Acquired absence of left leg above knee; Z79.4 Long term (current) use of insulin; Z89.611 Acquired absence of right leg above knee; Z74.01 Bed confinement status
CPT/HCPCS: J1650

== ENCOUNTER 2019-06-04 16:56 | Observation (INO) | payer MEDICARE, OTHER ==
[~2019-06-04] VITALS: Ht 152.4 cm; Wt 51.6 kg
[~2019-06-04 16:56] MED LIST changes: +AMLODIPINE BESY10 MG PO; +CLONIDINE HYDR0.1 M1 PO; +LASIX 40 MG TAB40 MG PO; +NOVOLOG FL100 UNIT/M SC; +QUETIAPINE FUMA25 MG; +TRAMADOL HCL50 MG PO
[2019-06-04 17:52] LABS: HEMATOCRIT 25.7 % (37.0-47.0); IMMATURE GRANULOCYTES 0.6 % (0.0-5.0); MEAN CELL VOLUME 97.3 fL CALC (80.0-100.0); MEAN CORPUSCULAR HGB 31.8 pG CALC (26.0-32.0); MEAN CORPUSCULAR HGB CONC 32.7 g/L CALC (32.0-36.0); NEUT# 12.01 thou/uL (2.00-7.15); RED BLOOD COUNT 2.64 mill/uL (4.20-5.60); RED CELL DISTRI WIDTH 13.6 % (11.5-15.5)
[2019-06-04 17:53] LABS: HEMOGLOBIN 8.4 g/dl (12.0-16.0)
[2019-06-04 17:54] LABS: URINE BILIRUBIN - DIPSTICK NEGATIVE (NEGATIVE); URINE BLOOD DIPSTICK SMALL (NEGATIVE); URINE COLOR YELLOW; URINE GLUCOSE - DIPSTICK 250 mg/dL (NEGATIVE); URINE KETONE NEGATIVE (NEGATIVE); URINE PH 5.5 (4.5-8.0); URINE PROTEIN - DIPSTICK 100 mg/dL (NEG-TRACE); URINE SPECIFIC GRAVITY 1.025; URINE UROBILINOGEN - DIPSTICK >=8.0 E.U./dL (0.2)
[2019-06-04 17:58] LABS: BARBITURATES NEGATIVE (NEGATIVE); COCAINE NEGATIVE (NEGATIVE); METHADONE NEGATIVE (NEGATIVE); TETRAHYDROCANNABIONOL NEGATIVE (NEGATIVE); TRICYLIC ANTIDEPRESSANTS NEGATIVE (NEGATIVE)
[2019-06-04 17:59] LABS: OXCYCODONE NEGATIVE (NEGATIVE); URINE LEUK ESTERASE SMALL (NEGATIVE); URINE NITRITE - DIPSTICK POSITIVE (Negative)
[2019-06-04 18:01] LABS: URINE BACTERIA FEW hpf; URINE SQUAMOUS EPITHELIAL CELL FEW EPI/hpf (0-FEW); URINE WBC 50-100 WBC/hpf (0-5)
[2019-06-04 18:11] LABS: ALBUMIN 3.7 g/dL (3.2-5.0); BILIRUBIN, TOTAL 1.1 mg/dL (0.0-1.4); CREATININE 1.2 mg/dL (0.5-1.0); POTASSIUM 4.5 mmol/l (3.5-5.1); TOTAL PROTEIN 7.5 g/dL (6.3-8.2)
[2019-06-04 20:03] VITALS: BP 157/53
[2019-06-05 00:14] VITALS: BP 178/53
[2019-06-05 04:30] VITALS: BP 163/64
[2019-06-05 05:13] LABS: HEMATOCRIT 29.7 % (37.0-47.0); HEMOGLOBIN 9.8 g/dl (12.0-16.0); IMMATURE GRANULOCYTES 0.4 % (0.0-5.0); MEAN CELL VOLUME 96.4 fL CALC (80.0-100.0); MEAN CORPUSCULAR HGB 31.8 pG CALC (26.0-32.0); PLATELET COUNT 177 thou/uL (130-400); RED BLOOD COUNT 3.08 mill/uL (4.20-5.60); RED CELL DISTRI WIDTH 13.5 % (11.5-15.5)
[2019-06-05 05:31] LABS: CREATININE 1.1 mg/dL (0.5-1.0); POTASSIUM 4.8 mmol/l (3.5-5.1)
[2019-06-05 05:38] LABS: BAND 1 % (0-8); MANUAL DIFFERENTIAL YES
[2019-06-05 07:43] VITALS: BP 180/55
[2019-06-05 11:09] VITALS: BP 175/71
[2019-06-05 16:01] VITALS: BP 178/64
[2019-06-05 19:48] VITALS: BP 153/64
[2019-06-06 00:43] VITALS: BP 168/63
[2019-06-06 04:58] VITALS: BP 171/69
[2019-06-06 08:22] VITALS: BP 182/55
[2019-06-06 13:46] VITALS: BP 141/59
[2019-06-06 14:30] VITALS: BP 165/61
[2019-06-06 19:50] VITALS: BP 141/57
[2019-06-07 03:45] VITALS: BP 170/62
[2019-06-07 05:10] LABS: HEMATOCRIT 28.6 % (37.0-47.0); HEMOGLOBIN 9.7 g/dl (12.0-16.0); IMMATURE GRANULOCYTES 0.5 % (0.0-5.0); MEAN CELL VOLUME 94.7 fL CALC (80.0-100.0); MEAN CORPUSCULAR HGB 32.1 pG CALC (26.0-32.0); MEAN CORPUSCULAR HGB CONC 33.9 g/L CALC (32.0-36.0); NEUT# 4.03 thou/uL (2.00-7.15); RED BLOOD COUNT 3.02 mill/uL (4.20-5.60); RED CELL DISTRI WIDTH 13.2 % (11.5-15.5)
[2019-06-07 05:37] LABS: ANION GAP 10 (6-22 (CALC)); BUN 20 mg/dL (8-23); BUN/CREATININE RATIO 30 (12-20 (CALC)); CARBON DIOXIDE 22 mmol/l (22-30); CHLORIDE 109 mmol/l (95-108); CREATININE 0.7 mg/dL (0.5-1.0); GFR > 60 ML/MIN (>=60 (CALC)); GFR FOR AFR.AMER. > 60 ML/MIN (>=60 (CALC)); SODIUM 138 mmol/l (137-146)
[2019-06-07 05:39] LABS: POTASSIUM 3.4 mmol/l (3.5-5.1)
[2019-06-07 09:03] VITALS: BP 177/77
[2019-06-07 10:25] VITALS: BP 182/61
[2019-06-07 14:20] VITALS: BP 150/53
[2019-06-07 19:33] VITALS: BP 181/64
[2019-06-07 23:03] VITALS: BP 165/64
[2019-06-08 05:44] VITALS: BP 185/53
[2019-06-08 06:18] VITALS: BP 177/55
[2019-06-08 07:43] VITALS: BP 187/59
[2019-06-08 09:01] VITALS: BP 187/59
[2019-06-08] MEDS ORDERED: KEFLEX500 MG PO (11:39)
== END 2019-06-08 15:40 | disposition home health service (06) ==
LOC: ED 16:56 → ED-I 17:37 → ED 18:43 → MS2 18:44
PROVIDERS: Family Medicine; Internal Medicine; ADMIT Internal Medicine; ATTEND Internal Medicine
DX: N39.0 Urinary tract infection, site not specified (principal); G93.41 Metabolic encephalopathy; I16.1 Hypertensive emergency; I13.0 Hypertensive heart and chronic kidney disease with heart failure and stage 1 through stage 4 chronic kidney disease, or unspecified chronic kidney disease; E11.22 Type 2 diabetes mellitus with diabetic chronic kidney disease; I50.9 Heart failure, unspecified; N18.3 Chronic kidney disease, stage 3 (moderate); E11.51 Type 2 diabetes mellitus with diabetic peripheral angiopathy without gangrene; I42.9 Cardiomyopathy, unspecified; J43.9 Emphysema, unspecified; D63.8 Anemia in other chronic diseases classified elsewhere; F17.200 Nicotine dependence, unspecified, uncomplicated; F03.90 Unspecified dementia, unspecified severity, without behavioral disturbance, psychotic disturbance, mood disturbance, and anxiety; B96.20 Unspecified Escherichia coli [E. coli] as the cause of diseases classified elsewhere; S72.141D Displaced intertrochanteric fracture of right femur, subsequent encounter for closed fracture with routine healing; X58.XXXD Exposure to other specified factors, subsequent encounter; Z89.612 Acquired absence of left leg above knee; Z89.611 Acquired absence of right leg above knee; Z79.4 Long term (current) use of insulin; Z74.01 Bed confinement status

== ENCOUNTER 2019-09-02 12:15 | Observation (INO) | payer MEDICARE, OTHER ==
[~2019-09-02] VITALS: Ht 152.4 cm; Wt 60.0 kg
[~2019-09-02 12:15] MED LIST changes: -AMLODIPINE BESY10 MG PO; -CLONIDINE HYDR0.1 M1 PO
[2019-09-02 13:18] LABS: HEMATOCRIT 34.5 % (37.0-47.0); HEMOGLOBIN 11.3 g/dl (12.0-16.0); IMMATURE GRANULOCYTES 0.3 % (0.0-5.0); MEAN CELL VOLUME 95.8 fL CALC (80.0-100.0); MEAN CORPUSCULAR HGB 31.4 pG CALC (26.0-32.0); MEAN CORPUSCULAR HGB CONC 32.8 g/L CALC (32.0-36.0); NEUT# 4.6 thou/uL (2.00-7.15); RED BLOOD COUNT 3.6 mill/uL (4.20-5.60); RED CELL DISTRI WIDTH 14.2 % (11.5-15.5)
[2019-09-02 14:11] LABS: ALKALINE PHOSPHATASE 89 u/l (38-126); BUN 15 mg/dL (8-23); BUN/CREATININE RATIO 18 (12-20 (CALC)); CARBON DIOXIDE 22 mmol/l (22-30); CHLORIDE 106 mmol/l (95-108); CREATININE 0.9 mg/dL (0.5-1.0); GFR > 60 ML/MIN (>=60 (CALC)); GFR FOR AFR.AMER. > 60 ML/MIN (>=60 (CALC)); SGOT/AST 34 u/l (9-36); SODIUM 135 mmol/l (137-146); TOTAL PROTEIN 6.3 g/dL (6.3-8.2)
[2019-09-02 14:20] LABS: ALBUMIN 2.9 g/dL (3.2-5.0); ANION GAP 12 (6-22 (CALC)); BILIRUBIN, TOTAL 0.6 mg/dL (0.0-1.4); POTASSIUM 4.7 mmol/l (3.5-5.1)
[2019-09-02 20:00] VITALS: BP 193/87
[2019-09-02 22:00] VITALS: BP 165/69
[2019-09-03] VITALS (13 sets, daily range): BP systolic 131–193; BP diastolic 45–77
[2019-09-03 06:08] LABS: HEMATOCRIT 31.9 % (37.0-47.0); HEMOGLOBIN 10.4 g/dl (12.0-16.0); MEAN CELL VOLUME 95.8 fL CALC (80.0-100.0); MEAN CORPUSCULAR HGB 31.2 pG CALC (26.0-32.0); MEAN CORPUSCULAR HGB CONC 32.6 g/L CALC (32.0-36.0); RED BLOOD COUNT 3.33 mill/uL (4.20-5.60); RED CELL DISTRI WIDTH 14.1 % (11.5-15.5)
[2019-09-03 06:21] LABS: CREATININE 1.2 mg/dL (0.5-1.0)
[2019-09-03 06:27] LABS: POTASSIUM 5.2 mmol/l (3.5-5.1)
[2019-09-04] VITALS (9 sets, daily range): BP systolic 122–164; BP diastolic 43–64
[2019-09-04 05:19] LABS: HEMATOCRIT 31.4 % (37.0-47.0); HEMOGLOBIN 10.1 g/dl (12.0-16.0); MEAN CELL VOLUME 96.9 fL CALC (80.0-100.0); MEAN CORPUSCULAR HGB 31.2 pG CALC (26.0-32.0); MEAN CORPUSCULAR HGB CONC 32.2 g/L CALC (32.0-36.0); RED BLOOD COUNT 3.24 mill/uL (4.20-5.60); RED CELL DISTRI WIDTH 14.2 % (11.5-15.5)
[2019-09-04 05:32] LABS: CREATININE 1.2 mg/dL (0.5-1.0); POTASSIUM 4.3 mmol/l (3.5-5.1)
== END 2019-09-04 18:30 | disposition short-term general hospital (02) ==
LOC: ED 12:15 → ED-I 15:07 → ED 15:15 → ICU 15:16
PROVIDERS: Emergency Medicine; ADMIT Internal Medicine; ATTEND Internal Medicine
DX: I48.91 Unspecified atrial fibrillation (principal); I13.0 Hypertensive heart and chronic kidney disease with heart failure and stage 1 through stage 4 chronic kidney disease, or unspecified chronic kidney disease; I50.9 Heart failure, unspecified; E11.22 Type 2 diabetes mellitus with diabetic chronic kidney disease; N18.3 Chronic kidney disease, stage 3 (moderate); E11.51 Type 2 diabetes mellitus with diabetic peripheral angiopathy without gangrene; R79.89 Other specified abnormal findings of blood chemistry; J43.9 Emphysema, unspecified; I42.9 Cardiomyopathy, unspecified; F03.90 Unspecified dementia, unspecified severity, without behavioral disturbance, psychotic disturbance, mood disturbance, and anxiety; F17.210 Nicotine dependence, cigarettes, uncomplicated; Z79.4 Long term (current) use of insulin; Z89.611 Acquired absence of right leg above knee; Z89.612 Acquired absence of left leg above knee
CPT/HCPCS: J1650

== ENCOUNTER 2019-09-07 20:22 | Inpatient (IN) | payer MEDICARE, OTHER ==
[~2019-09-07] VITALS: Ht 152.4 cm; Wt 46.0 kg
[2019-09-07 20:00] VITALS: BP 179/65
[2019-09-07 23:05] VITALS: BP 185/60
[2019-09-08] VITALS (17 sets, daily range): BP systolic 118–196; BP diastolic 42–88
[2019-09-08 05:06] LABS: HEMATOCRIT 35.2 % (37.0-47.0); HEMOGLOBIN 11.6 g/dl (12.0-16.0); MEAN CELL VOLUME 94.9 fL CALC (80.0-100.0); MEAN CORPUSCULAR HGB 31.3 pG CALC (26.0-32.0); RED BLOOD COUNT 3.71 mill/uL (4.20-5.60); RED CELL DISTRI WIDTH 13.5 % (11.5-15.5)
[2019-09-08 05:15] LABS: ANION GAP 9 (6-22 (CALC)); BUN 16 mg/dL (8-23); BUN/CREATININE RATIO 18 (12-20 (CALC)); CARBON DIOXIDE 26 mmol/l (22-30); CHLORIDE 107 mmol/l (95-108); CREATININE 0.9 mg/dL (0.5-1.0); GFR > 60 ML/MIN (>=60 (CALC)); GFR FOR AFR.AMER. > 60 ML/MIN (>=60 (CALC)); POTASSIUM 4.2 mmol/l (3.5-5.1); SODIUM 139 mmol/l (137-146)
[2019-09-09] VITALS (28 sets, daily range): BP systolic 96–181; BP diastolic 45–78
[2019-09-10] VITALS: BP 120/44
[2019-09-10 02:00] VITALS: BP 132/46
[2019-09-10 04:00] VITALS: BP 138/56
[2019-09-10 06:00] VITALS: BP 145/61
[2019-09-10 08:00] VITALS: BP 157/80
[2019-09-10 08:37] VITALS: BP 157/80
[2019-09-10] MEDS ORDERED: ASPIRIN ADULT L81 M2 PO (09:41)
[2019-09-10] MEDS ORDERED: CARDIZEM CD 180 PO (09:41)
== END 2019-09-10 12:20 | DRG 309 ==
LOC: ICU 20:22 → MS2 20:22 → ICU 09-08 05:50
PROVIDERS: ADMIT Internal Medicine; ATTEND Internal Medicine
DX: I48.91 Unspecified atrial fibrillation (principal); I13.0 Hypertensive heart and chronic kidney disease with heart failure and stage 1 through stage 4 chronic kidney disease, or unspecified chronic kidney disease; I24.8 Other forms of acute ischemic heart disease; I50.32 Chronic diastolic (congestive) heart failure; I16.1 Hypertensive emergency; E11.649 Type 2 diabetes mellitus with hypoglycemia without coma; E11.22 Type 2 diabetes mellitus with diabetic chronic kidney disease; N18.3 Chronic kidney disease, stage 3 (moderate); I42.9 Cardiomyopathy, unspecified; I25.10 Atherosclerotic heart disease of native coronary artery without angina pectoris; J43.9 Emphysema, unspecified; E11.51 Type 2 diabetes mellitus with diabetic peripheral angiopathy without gangrene; F03.90 Unspecified dementia, unspecified severity, without behavioral disturbance, psychotic disturbance, mood disturbance, and anxiety; F17.200 Nicotine dependence, unspecified, uncomplicated; R13.10 Dysphagia, unspecified; K74.60 Unspecified cirrhosis of liver; I71.4 Abdominal aortic aneurysm, without rupture; I35.0 Nonrheumatic aortic (valve) stenosis; Z79.4 Long term (current) use of insulin; Z89.611 Acquired absence of right leg above knee; Z89.612 Acquired absence of left leg above knee; I50.9 Heart failure, unspecified; F17.210 Nicotine dependence, cigarettes, uncomplicated
CPT/HCPCS: J1650

== ENCOUNTER 2019-10-16 06:55 | Observation (INO) | payer MEDICARE, OTHER ==
[~2019-10-16] VITALS: Ht 152.4 cm; Wt 47.8 kg
[~2019-10-16 06:55] MED LIST changes: +ASPIRIN ADULT L81 M2 PO; +CARDIZEM CD 180 PO
--- NOTE | 2019-10-16 07:03 | NUR ---
PT TO ROOM VIA EMS
--- NOTE | 2019-10-16 07:05 | NUR ---
PT MOVED TO STRETCHER. MONITORS APPLIED. RESPIRATORY DISTRESS NOTED. PT SPEAKING IN ONE WORD SENTENCES. AUDIBLE WHEEZING, TACHYPNIA NOTED. PT AWAKE, ALERT, ORIENTED X3. SKIN PINK WARM AND DRY MOVES UPPER EXTREMITIES, PT HAS BILAT AKA. NO COMPLAINTS OF CHEST PAIN. EDMD IFORMED OF PT ASSESSMENT
[2019-10-16 07:46] LABS: HEMATOCRIT 32.2 % (37.0-47.0); HEMOGLOBIN 10.8 g/dl (12.0-16.0); IMMATURE GRANULOCYTES 1.3 % (0.0-5.0); MEAN CELL VOLUME 92.8 fL CALC (80.0-100.0); MEAN CORPUSCULAR HGB 31.1 pG CALC (26.0-32.0); MEAN CORPUSCULAR HGB CONC 33.5 g/L CALC (32.0-36.0); NEUT# 4.67 thou/uL (2.00-7.15); RED BLOOD COUNT 3.47 mill/uL (4.20-5.60); RED CELL DISTRI WIDTH 13.3 % (11.5-15.5)
--- NOTE | 2019-10-16 08:14 | NUR ---
PT REPORTS BREATHING IMPROVED AFTER NEB TX. SPEAKING IN 3-4 WORD SENTENCES. RR 20 NOTED. PT RESTING ON STRETCHER CALL ESPARZA AT LEFT HAND
[2019-10-16 08:21] LABS: MYOGLOBIN 77 ng/mL (0 - 62)
[2019-10-16 08:31] LABS: ALKALINE PHOSPHATASE 110 u/l (38-126); BILIRUBIN, TOTAL 0.5 mg/dL (0.0-1.4); BUN 25 mg/dL (8-23); BUN/CREATININE RATIO 30 (12-20 (CALC)); CHLORIDE 110 mmol/l (95-108); CREATININE 0.8 mg/dL (0.5-1.0); GFR > 60 ML/MIN (>=60 (CALC)); GFR FOR AFR.AMER. > 60 ML/MIN (>=60 (CALC)); SGOT/AST 36 u/l (9-36); SODIUM 138 mmol/l (137-146); TOTAL PROTEIN 6.6 g/dL (6.3-8.2)
--- NOTE | 2019-10-16 08:34 | NUR ---
PT COMPLAINS OF PAIN LEFT LOWER RIB AREA. AWARE.
[2019-10-16 08:38] LABS: ANION GAP 12 (6-22 (CALC)); CARBON DIOXIDE 20 mmol/l (22-30)
--- NOTE | 2019-10-16 09:30 | NUR ---
PT RESTING COMFROTABLY IN STRETCHER WITH EYES CLOSED. CALL ESPARZA WITHIN REACH.
--- NOTE | 2019-10-16 10:28 | NUR ---
SIGALA PLACES WITHOUT DIFFICULTY. PT POSITIONED FOR COMFORT
--- NOTE | 2019-10-16 10:29 | NUR ---
PT MEDICATED FOR CONTINUED HYPERTENSION. INFORMED THAT SHE WILL BE ADMITTED TO THE HOSPITAL. PT WILL ASK HER SISTER TO BRING IN HER MEDICATION FOR MED RECONCILIATION.
--- NOTE | 2019-10-16 10:40 | NUR ---
REPORT GIVEN TO MARSHA KNOX MED SURG
--- NOTE | 2019-10-16 10:50 | NUR ---
Admission Note Report Given to: JUANA Transported by: Wheelchair X Stretcher Transported with: X Nurse Transporter X Patent IV O2 X Hospice Community Liaison Location: ICU X MS2 PT TO ROOM 282 IN STABLE CONDITION
[2019-10-16 10:53] LABS: URINE BILIRUBIN - DIPSTICK NEGATIVE (NEGATIVE); URINE BLOOD DIPSTICK SMALL (NEGATIVE); URINE COLOR YELLOW; URINE GLUCOSE - DIPSTICK NEGATIVE (NEGATIVE); URINE KETONE NEGATIVE (NEGATIVE); URINE NITRITE - DIPSTICK NEGATIVE (Negative); URINE PH 5.5 (4.5-8.0); URINE PROTEIN - DIPSTICK >=300 mg/dL (NEG-TRACE); URINE SPECIFIC GRAVITY >=1.030
[2019-10-16 10:56] LABS: URINE LEUK ESTERASE SMALL (NEGATIVE)
[2019-10-16 10:58] LABS: URINE EPITHELIAL CELLS FEW EPI/hpf (0-FEW); URINE WBC 20-50 WBC/hpf (0-5)
[2019-10-16 10:59] LABS: URINE BACTERIA MANY hpf
[2019-10-16 11:00] VITALS: BP 145/56
--- NOTE | 2019-10-16 11:32 | NUR ---
PT HAS COME FROM ER VIA STRETCHER. ASSESSMENT DONE. PT IS ALERT X1 BUT DROWSY. SPEECH IS SLOW/GARBLED. TELE IN PLACE. NO S/S OF DISTRESS NOTED. SIGALA IS PATENT WITH VINI URINE. CALL LIGHT IN REACH. BEDALARM IN PLACE FOR SAFETY.
[2019-10-16 14:55] VITALS: BP 116/51
--- NOTE | 2019-10-16 16:03 | NUR ---
PT IS RESTING IN BED. PT DENIES PAIN AT THIS TIME. TELE IN PLACE. CALL LIGHT IN REACH.
[2019-10-16 19:00] VITALS: BP 152/63
[2019-10-16 23:35] VITALS: BP 141/49
[2019-10-17] VITALS (8 sets, daily range): BP systolic 127–195; BP diastolic 53–69
--- NOTE | 2019-10-17 08:00 | NUR ---
ASSESSMENT DONE. PT IS A&O X2 BUT FORGETFUL. PT HAS A DRY COUGH. LUNGS SOUND/WHEEZES. TELE IN PLACE. SIGALA IS PATENT WITH VINI URINE. PT DENIES PAIN. SAFETY PRECAUTIONS REINFORCED AND CALL LIGHT IN REACH. BED ALARM IN PLACE.
--- NOTE | 2019-10-17 12:03 | NUR ---
PT IS YELLING DOES NOT SAY WHAT SHE NEEDS. SETUP PT FOR LUNCH. PT DENIES NEEDS. TELE IN PLACE AND CALL LIGHT IN REACH. BED ALARM IN PLACE.
--- NOTE | 2019-10-17 19:29 | NUR ---
PATIENT RESTING IN BED WITH HOB ELEVATED. PATIENT IS ALERT TO SELF-UNABLE TO GIVE DATE OF AT THIS TIME. BP ELEVATED AT 195/69. HYDRALIZINE 10MG IVP GIVEN VIA SALINE LOCK RIGHT HAND. SITE IS HEALTHY AT THIS ITME. SIGALA CATH PATENT AND DRAINING CLEAR YELLOW URINE. PATIENT WITH MOIST NON-PRODUCTIVE COUGH. SAFETY PRECAUTIONS REINFORCED. CALL LIGHT IN REACH. WILL CONT TO MONITOR.
--- NOTE | 2019-10-17 21:44 | NUR ---
PATIENT RESTING IN BED WITH HOB. BP IMPROVED TO 127/60, HR-95, O2 SAT 98%. [id number] WITH NOVALOG 1UNIT TO ABD ORDERED. HS SNACK GIVEN ORDERED. PATIENT WITH NON-PRODUCTIVE COUGH. TELE MONITOR IN PLACE. SAFETY PRECAUTIONS REINFORCED. CALL LIGHT IN REACH. WILL CONT TO MONITOR.
--- NOTE | 2019-10-18 01:35 | NUR ---
PATIENT SITTING UP IN BED-BP171/64, HR-109. APRESOLINE 10MG IVP GIVEN VIA RIGHT HAND SALINE LOCK. TELE MONITOR IN PLACE. SIGALA PATENT AND DRAINING YELLOW URINE. PATIENT ORIENTED TO SELF ONLY. CALL LIGHT IN REACH. WILL CONT TO MONITOR.
[2019-10-18 04:10] VITALS: BP 156/59
--- NOTE | 2019-10-18 04:27 | NUR ---
BP IMPROVED-RESTING IN BED WITH HOB ELEVATED. PATIENT WITH MOIST NON-PRODUCTIVE COUGH. VIBRAMYCIN HUNG ORDERED VIA RIGHT HAND IV SITE. SIGALA REMAINS PATENT AND DRAINING YELLOW URINE. PATIENT STILL ORIENTED TO SELF ONLY. SAFETY PRECAUTIONS REINFORCED. CALL LIGHT IN REACH. WILL CONT TO MONITOR.
--- NOTE | 2019-10-18 07:00 | NUR ---
SHIFT CHANGE REPORT, PT SLEEPING, BREATHING EVEN AND NON-LABORED, TELE MONITOR IN PLACE, BED IN LOWEST POSITION WITH ALARM ON, CALL ESPARZA IN REACH.
[2019-10-18 07:34] VITALS: BP 178/50
[2019-10-18 10:38] VITALS: BP 162/87
[2019-10-18] MEDS ORDERED: AMLODIPINE BESY10 MG PO (10:39)
[2019-10-18] MEDS ORDERED: CLONIDINE HYDR0.1 M1 PO (10:39)
[2019-10-18] MEDS ORDERED: ZESTRIL40 MG PO (10:40)
[2019-10-18] MEDS ORDERED: DILTIAZEM HCL180 MG PO (10:48)
[2019-10-18 11:13] LABS: HEMATOCRIT 32.1 % (37.0-47.0); HEMOGLOBIN 10.6 g/dl (12.0-16.0); MEAN CORPUSCULAR HGB 31.4 pG CALC (26.0-32.0); RED BLOOD COUNT 3.38 mill/uL (4.20-5.60); RED CELL DISTRI WIDTH 13.9 % (11.5-15.5)
[2019-10-18 11:58] LABS: ALBUMIN 2.7 g/dL (3.2-5.0); BILIRUBIN, TOTAL 0.3 mg/dL (0.0-1.4); CREATININE 1.1 mg/dL (0.5-1.0); TOTAL PROTEIN 5.9 g/dL (6.3-8.2)
--- NOTE | 2019-10-18 12:28 | NUR ---
SITTING UP IN BED AT THIS TIME HAVING MEAL. SHOUTS ALOUD ALL AM BUT UNABLE TO VOICE CONCERNS, NEED ANTICIPATED AND ADDRESSED, CALL ESPARZA IN REACH.
[2019-10-18 15:35] VITALS: BP 130/51
--- NOTE | 2019-10-18 16:00 | NUR ---
RELAXING IN BED, SHOUTS OUT PERIODICALLY BUT KEEPS CALM WHEN STAFF SITS WITH HER IN ROOM, DENIES PAIN, NEEDS ANTICIPATED AND ADDRESSED.
[2019-10-18 18:55] VITALS: BP 143/53
--- NOTE | 2019-10-18 20:00 | NUR ---
PATIENT RESTING IN BED WITH HOB ELEVATED-PATIENT ORIENTED TO PERSON ONLY. PATIENT CALLING OUT BUT UNABLE TO COMMUNICATE NEEDS. SPEECH IS GARBLED AND UNABLE TO UNDERSTAND HER NEEDS. PATIENT DOESN'T APPEARS IN ANY DISTRESS. TELE MONITOR IN PLACE. SIGALA CATH PATENT AND DRAINING YELLOW URINE. PATIENT CONT TO HAVE NON-PRODUCTIVE MOIST COUGH. SAFETY PRECAUTIONS REINFORCED. CALL LIGHT IN REACH. WILL CONT TO MONITOR.
[2019-10-18 23:30] VITALS: BP 145/56
--- NOTE | 2019-10-19 00:05 | NUR ---
PATIENT IS ON ANDOFF SLEEPING AND CONT TO CALL OUT AT TIMES. TELE MONITOR INPLACE. SIGALA PATENT AND DRAINING YELLOW URINE. CALL LIGHT IN REACH, WILL CONT TO MONITOR.
[2019-10-19 03:40] VITALS: BP 157/60
--- NOTE | 2019-10-19 04:15 | NUR ---
PATIENT RESTING IN BED-VIBRAMYCIN HUNG ORDERED VIA RIGHT HAND IV SITE. SITE REMAINS HEALTHY AT THIS ITME. SIGALA PATENT AND DRAINING YELLOW URINE. CALL LIGHT IN REACH. WILL CONT TO MONITIOR.
--- NOTE | 2019-10-19 07:05 | NUR ---
REPORT RECEIVED FROM ABILIO NARVAEZ;PT RESTING IN SEMI FOWLERS POSITION, A&O TO SELF ONLY;INTRODUCED SELF TO PT;RESPIRATIONS APPEAR EVEN AND UNLABORED ON RA;NO S/S OF DISTRESS NOTED;TELE MONITORING IN PLACE;SIGALA CATHETER PATENT DRAINING TO GRAVITY WITH EASE;ALL SAFETY PRECAUTIONS IN PLACE WITH BED IN THE LOWEST POSITION AND CALL LIGHT IN REACH;WILL CONTINUE TO MONITOR
--- NOTE | 2019-10-19 07:50 | NUR ---
PT RESTING IN SEMI FOWLERS POSITION,ALERT TO SELF ONLY WITH GARBLED SPEECH AT TIMES;VS OBTAINED AND ASSESSMENT COMPLETED;NO S/S OF DISTRESS NOTED,PAIN SCALE AND REPORTING EDUCATED;RESPIRATIONS EVEN AND UNLABORED,SHALLOW ON RA;WET COUGH NOTED AT TIMES;ABDOMEN SOFT ON PALPATION AND ACTIVE IN ALL 4 QUADRANTS;SIGALA CATHETER PATENT DRAINING CLEAR/YELLOW URINE TO GRAVITY WITH EASE,STAT LOCK TO RIGHT THIGH;PT BILATERAL BKA;#22G TO RIGHT HAND FLUSHED AND PATENT,SITE APPEARS HEALTHY;TELE MONITORING IN PLACE;ACCUCHECK 159, PT COVERED WITH SLIDING SCALE NOVOLOG PER ORDER;ALL SAFETY PRECAUTIONS REMAIN IN PLACE WITH BED IN THE LOWEST POSITION AND BED ALARM ON FOR SAFETY;CALL LIGHT IN REACH;WILL CONTINUE TO MONITOR
[2019-10-19 07:54] VITALS: BP 175/45
[2019-10-19 08:39] VITALS: BP 137/45
--- NOTE | 2019-10-19 09:37 | NUR ---
DORON,ANRP AT BEDSIDE
[2019-10-19 10:45] VITALS: BP 132/53
--- NOTE | 2019-10-19 10:50 | NUR ---
PT RESTING IN SEMI FOWLERS POSITION,REMAINS A&O TO SELF ONLY;RESPIRATIONS EVEN AND UNLABORED ON RA;TELE MONITORING IN PLACE;IV SITE PATENT;SIGALA CATHETER CONTINUES TO DRAIN TO GRAVITY WITH EASE;ACCUCHECK 279, PT COVERED WITH SLIDING SCALE NOVOLOG PER ORDER;ALL SAFETY PRECAUTIONS REMAIN IN PLACE WITH BED ALARM ON FOR SAFETY;CALL LIGHT IN REACH;WILL CONTINUE TO MONITOR
[2019-10-19 11:02] LABS: HEMATOCRIT 29.2 % (37.0-47.0); HEMOGLOBIN 9.6 g/dl (12.0-16.0); MEAN CELL VOLUME 95.4 fL CALC (80.0-100.0); MEAN CORPUSCULAR HGB 31.4 pG CALC (26.0-32.0); MEAN CORPUSCULAR HGB CONC 32.9 g/L CALC (32.0-36.0); RED BLOOD COUNT 3.06 mill/uL (4.20-5.60); RED CELL DISTRI WIDTH 13.6 % (11.5-15.5)
--- NOTE | 2019-10-19 11:05 | NUR ---
AT BEDSIDE DISCUSSING POC INCLUDING PLANS TO D/C HOME.
[2019-10-19] MEDS ORDERED: KEFLEX500 M1 PO (11:06)
[2019-10-19 11:16] LABS: BUN 40 mg/dL (8-23); BUN/CREATININE RATIO 40 (12-20 (CALC)); CARBON DIOXIDE 23 mmol/l (22-30); CHLORIDE 108 mmol/l (95-108); GFR 54 ML/MIN (>=60 (CALC)); GFR FOR AFR.AMER. > 60 ML/MIN (>=60 (CALC)); MAGNESIUM 1.8 mg/dL (1.6-2.3); SODIUM 137 mmol/l (137-146)
[2019-10-19 11:27] LABS: ANION GAP 10 (6-22 (CALC)); POTASSIUM 3.9 mmol/l (3.5-5.1)
--- NOTE | 2019-10-19 11:32 | NUR ---
SIGALA CATHETER REMOVED AT THIS TIME PER ORDER,PT TOLERATED WELL.
--- NOTE | 2019-10-19 11:35 | NUR ---
VOICEMAIL LEFT FOR CINTIA FABIANDEZ (SISTER) TO NOTIFY OF PT D/C, AWAITING RETURN CALL BACK.
--- NOTE | 2019-10-19 14:15 | NUR ---
ALL DISCHARGE INSTRUCTIONS PROVIDED AT THIS TIME TO SISTER;PT INSTRUCTED TO TAKE ALL HOME MEDICATION PRESCRIBED,TAKE KEFLEX AND F/U WITH PCP;RX FOR KEFLEX PROVIDED;SISTER VERBALIZES UNDERSTANDING;IV SITE REMOVED WITH CATHETER INTACT AND TELE MONITORING D/C;PT AND FAMILY DENY ANY ADDITIONAL NEEDS AT THIS TIME;WHEELCHAIR TO BE PROVIDED FOR D/C HOME;SISTER TO TRANSPORT PT HOME.
--- NOTE | 2019-10-19 14:15 | NUR ---
Discharge instructions given. Patient verbalizes understanding of same. Discharged in stable condition via Wheelchair to Home with family. All belongings sent with pt. PT TRANSPORTED TO [facility] IN STABLE CONDITION VIA WHEELCHAIR ACCOMPANIED BY ABILIO SMITH AND FAMILY FOR D/C HOME,SISTER TO TRANSPORT PT HOME.
== END 2019-10-19 14:16 ==
LOC: ED 06:55 → ED-I 09:00 → ED 09:14 → MS2 09:15
PROVIDERS: Emergency Medicine; Nurse Practitioner Family; ADMIT Internal Medicine; ATTEND Internal Medicine
PROC: 0T9B70Z Drainage of Bladder with Drainage Device, Via Natural or Artificial Opening (ICD-10-PCS; principal; 2019-10-16)
PROC: 3E02340 Introduction of Influenza Vaccine into Muscle, Percutaneous Approach (ICD-10-PCS; 2019-10-18)
PROC: 3E0234Z Introduction of Serum, Toxoid and Vaccine into Muscle, Percutaneous Approach (ICD-10-PCS; 2019-10-18)
DX: I13.0 Hypertensive heart and chronic kidney disease with heart failure and stage 1 through stage 4 chronic kidney disease, or unspecified chronic kidney disease (principal); I50.9 Heart failure, unspecified; I35.0 Nonrheumatic aortic (valve) stenosis; R06.03 Acute respiratory distress; N39.0 Urinary tract infection, site not specified; E11.22 Type 2 diabetes mellitus with diabetic chronic kidney disease; N18.3 Chronic kidney disease, stage 3 (moderate); E11.51 Type 2 diabetes mellitus with diabetic peripheral angiopathy without gangrene; J43.9 Emphysema, unspecified; I25.10 Atherosclerotic heart disease of native coronary artery without angina pectoris; F17.200 Nicotine dependence, unspecified, uncomplicated; F03.90 Unspecified dementia, unspecified severity, without behavioral disturbance, psychotic disturbance, mood disturbance, and anxiety; I42.9 Cardiomyopathy, unspecified; B96.20 Unspecified Escherichia coli [E. coli] as the cause of diseases classified elsewhere; Z89.612 Acquired absence of left leg above knee; Z89.611 Acquired absence of right leg above knee; Z79.4 Long term (current) use of insulin; Z23 Encounter for immunization
CPT/HCPCS: G0378; J1650

== ENCOUNTER 2019-10-30 | Emergency (ER) | payer MEDICARE, OTHER ==
[~2019-10-30] MED LIST changes: +AMLODIPINE BESY10 MG PO; +CLONIDINE HYDR0.1 M1 PO; +DILTIAZEM HCL180 MG PO; +KEFLEX500 M1 PO
[2019-10-30 07:52] LABS: HEMATOCRIT 35.6 % (37.0-47.0); HEMOGLOBIN 11.8 g/dl (12.0-16.0); IMMATURE GRANULOCYTES 0.5 % (0.0-5.0); MEAN CELL VOLUME 94.2 fL CALC (80.0-100.0); MEAN CORPUSCULAR HGB 31.2 pG CALC (26.0-32.0); MEAN CORPUSCULAR HGB CONC 33.1 g/L CALC (32.0-36.0); NEUT# 3.09 thou/uL (2.00-7.15); RED BLOOD COUNT 3.78 mill/uL (4.20-5.60); RED CELL DISTRI WIDTH 13.6 % (11.5-15.5)
[2019-10-30 08:44] LABS: ALBUMIN 2.9 g/dL (3.2-5.0); ALKALINE PHOSPHATASE 79 u/l (38-126); ANION GAP 7 (6-22 (CALC)); BUN 23 mg/dL (8-23); BUN/CREATININE RATIO 32 (12-20 (CALC)); CARBON DIOXIDE 26 mmol/l (22-30); CHLORIDE 110 mmol/l (95-108); CREATININE 0.7 mg/dL (0.5-1.0); GFR > 60 ML/MIN (>=60 (CALC)); GFR FOR AFR.AMER. > 60 ML/MIN (>=60 (CALC)); LIPASE 26 u/l (23-300); POTASSIUM 3.8 mmol/l (3.5-5.1); SGOT/AST 50 u/l (9-36); SODIUM 139 mmol/l (137-146); TOTAL PROTEIN 6.4 g/dL (6.3-8.2)
[2019-10-30 08:45] LABS: BILIRUBIN, TOTAL 0.5 mg/dL (0.0-1.4)
[2019-10-30 08:47] LABS: PROTHROMBIN TIME 10.2 SECONDS (9.0-12.5)
[2019-10-30 09:07] LABS: URINE BILIRUBIN - DIPSTICK NEGATIVE (NEGATIVE); URINE BLOOD DIPSTICK NEGATIVE (NEGATIVE); URINE COLOR YELLOW; URINE GLUCOSE - DIPSTICK 250 mg/dL (NEGATIVE); URINE KETONE NEGATIVE (NEGATIVE); URINE LEUK ESTERASE NEGATIVE (NEGATIVE); URINE NITRITE - DIPSTICK NEGATIVE (Negative); URINE PROTEIN - DIPSTICK >=300 mg/dL (NEG-TRACE)
[2019-10-30 09:20] LABS: URINE HYALINE CAST FEW lpf (NONE-RARE); URINE WBC 0-2 WBC/hpf (0-5)
== END 2019-10-30 10:50 | disposition short-term general hospital (02) ==
PROVIDERS: Family Medicine
PROC: 02HV33Z Insertion of Infusion Device into Superior Vena Cava, Percutaneous Approach (ICD-10-PCS; principal; 2019-10-30)
PROC: 0T9B70Z Drainage of Bladder with Drainage Device, Via Natural or Artificial Opening (ICD-10-PCS; 2019-10-30)
DX: I21.4 Non-ST elevation (NSTEMI) myocardial infarction (principal); I11.0 Hypertensive heart disease with heart failure; I50.9 Heart failure, unspecified; J44.1 Chronic obstructive pulmonary disease with (acute) exacerbation; E11.649 Type 2 diabetes mellitus with hypoglycemia without coma; T68.XXXA Hypothermia, initial encounter; I42.9 Cardiomyopathy, unspecified; F03.90 Unspecified dementia, unspecified severity, without behavioral disturbance, psychotic disturbance, mood disturbance, and anxiety; Z89.612 Acquired absence of left leg above knee; Z89.611 Acquired absence of right leg above knee
CPT/HCPCS: J0692; J1644

== ENCOUNTER 2019-12-13 | Inpatient (IN) | payer MEDICARE, OTHER ==
[2019-12-12 20:11] LABS: HEMATOCRIT 35.2 % (37.0-47.0); HEMOGLOBIN 11.8 g/dl (12.0-16.0); IMMATURE GRANULOCYTES 1.1 % (0.0-5.0); MEAN CELL VOLUME 94.4 fL CALC (80.0-100.0); MEAN CORPUSCULAR HGB 31.6 pG CALC (26.0-32.0); MEAN CORPUSCULAR HGB CONC 33.5 g/L CALC (32.0-36.0); NEUT# 13.26 thou/uL (2.00-7.15); RED BLOOD COUNT 3.73 mill/uL (4.20-5.60); RED CELL DISTRI WIDTH 13.2 % (11.5-15.5)
[2019-12-12 20:14] LABS: BILIRUBIN, TOTAL 0.6 mg/dL (0.0-1.4); CREATININE 1.2 mg/dL (0.5-1.0); POTASSIUM 3.8 mmol/l (3.5-5.1); TOTAL PROTEIN 6.8 g/dL (6.3-8.2)
[2019-12-12 20:18] LABS: ALBUMIN 3.5 g/dL (3.2-5.0)
--- NOTE | 2019-12-12 22:09 | NUR ---
PT DIAPER CHANGED XL 8OWEL MOVEMENT, SIGALA CATHERTER PLACED PER M.D. REQUEST.
[2019-12-12 22:11] LABS: URINE BILIRUBIN - DIPSTICK NEGATIVE (NEGATIVE); URINE BLOOD DIPSTICK LARGE (NEGATIVE); URINE CLARITY CLEAR; URINE COLOR YELLOW; URINE GLUCOSE - DIPSTICK 250 mg/dL (NEGATIVE); URINE KETONE NEGATIVE (NEGATIVE); URINE LEUK ESTERASE MODERATE (Negative); URINE NITRITE - DIPSTICK NEGATIVE (Negative); URINE PROTEIN - DIPSTICK 100 mg/dL (NEG-TRACE); URINE SPECIFIC GRAVITY 1.025
[2019-12-12 22:28] LABS: URINE BACTERIA MODERATE hpf; URINE RBC TNTC RBC/hpf (0-5); URINE SQUAMOUS EPITHELIAL CELL FEW EPI/hpf (0-FEW)
[2019-12-12 22:40] LABS: INTERNATIONAL NORMALIZED RATIO 0.9 RATIO (0.7-1.3); PROTHROMBIN TIME 9.9 SECONDS (9.0-12.5)
--- NOTE | 2019-12-12 22:55 | NUR ---
PT IS SCREAMING, UNA8LE TO UNDERSTAND WHAT SHE IS SAYING. . NOTIFIED OF PT 8EHAVIOR.
--- NOTE | 2019-12-12 23:36 | NUR ---
PT RECEIVING ROCEPHIN IV, PT IS REPOSITONED FOR COMFORT AND SAFETY. NO S/S OF ANY ACUTE DISTRESS. M.D. NOTIFIED OF ELEVTED LACTIC LEVEL. PT HAS 0/10 PAIN SCALE VIA FACES PAIN SCALE. CONT TO MONITOR.
--- NOTE | 2019-12-12 23:39 | NUR ---
PT IS ADMITTED PER M.D.
--- NOTE | 2019-12-13 01:06 | NUR ---
PT CONT TO 8E RESTLESS, PT RECEIVES DOSE OF HALDOL. PT IS RESTING QUIETLY IN 8ED WITH EYES CLOSED. MEDICATION EFFECTIVE AT THIS TIME.
--- NOTE | 2019-12-13 03:46 | NUR ---
PT IS A BILAT ABOVE THE KNEE AMPUTEE WITH 22G IN LEFT WRIST. PT HAS 18FR INDWELLING SIGALA CATHETER AND IS INCONTINENT FOR B&B. PT IS RESTING IN BED WITH EYES CLOSED. NO S/S OF PAIN/DISCOMFORT PT 0/10 ON FACES PAIN SCALE. PT IS NON-VERBAL AND UNABLE TO COMMUNICATE NEEDS AND HEALTH HX.
[2019-12-13 04:52] VITALS: BP 147/54
[2019-12-13 05:53] LABS: HEMATOCRIT 30.7 % (37.0-47.0); HEMOGLOBIN 10.4 g/dl (12.0-16.0); MEAN CELL VOLUME 94.2 fL CALC (80.0-100.0); MEAN CORPUSCULAR HGB 31.9 pG CALC (26.0-32.0); MEAN CORPUSCULAR HGB CONC 33.9 g/L CALC (32.0-36.0); NEUT# 8.58 thou/uL (2.00-7.15); RED BLOOD COUNT 3.26 mill/uL (4.20-5.60); RED CELL DISTRI WIDTH 13.3 % (11.5-15.5)
[2019-12-13 05:54] LABS: IMMATURE GRANULOCYTES 8.1 % (0.0-5.0)
[2019-12-13 06:14] LABS: ANION GAP 9 (6-22 (CALC)); BUN 31 mg/dL (8-23); BUN/CREATININE RATIO 31 (12-20 (CALC)); CARBON DIOXIDE 20 mmol/l (22-30); CHLORIDE 114 mmol/l (95-108); GFR 54 ML/MIN (>=60 (CALC)); GFR FOR AFR.AMER. > 60 ML/MIN (>=60 (CALC)); SODIUM 139 mmol/l (137-146)
[2019-12-13 07:42] VITALS: BP 153/58
--- NOTE | 2019-12-13 10:00 | NUR ---
PATIENT A/OX2, NO S/S RESP DISTRESS, PATIENT ON ROOM AIR, PATIENT YELLING, PATIENT UNABLE TO TELL AREA OF PAIN, TYLENOL GIVEN TO PATIENT, WILL CONTINUE TO MONITOR PATIENT CALL LIGHT WITHIN REACH
[2019-12-13] MEDS ORDERED: XIFAXAN550 MG PO (11:31)
[2019-12-13] MEDS ORDERED: ASPIRIN81 MG PO (11:32)
[2019-12-13] MEDS ORDERED: LEVEMIR100 UNIT/M SC (11:33)
[2019-12-13] MEDS ORDERED: IPRATROPIU0.5 MG/3 M NEB (11:34)
[2019-12-13] MEDS ORDERED: TOPROL XL PO (11:35)
[2019-12-13] MEDS ORDERED: FUROSEMIDE20 MG PO (11:35)
[2019-12-13] MEDS ORDERED: CATAPRES0.2 MG PO (11:36)
[2019-12-13] MEDS ORDERED: NORVASC5 M1 PO (11:37)
[2019-12-13] MEDS ORDERED: HUMALOG100 UNIT/M SC (11:38)
--- NOTE | 2019-12-13 14:00 | NUR ---
PATIENT ALERT WITH CONFUSION, NO S/S RESP DISTRESS, PATIENT ON ROOM AIR, NO S/S PAIN, PATIENT HAD BOWEL MOVEMENT, PATIENT COCCYX EXCORIATED APPLIED MEPILEX, WILL CONTINUE TO MONITOR PATIENT
[2019-12-13 15:30] VITALS: BP 135/68
--- NOTE | 2019-12-13 17:00 | NUR ---
PATIENT ALERT WITH CONFUSION, PATIENT CONTINUES TO ZULY CUEVAS NOTIFIED, PATIENT STATED "LONELY", PATIENT NO S/S RESP DISTRESS, PATIENT ON ROOM AIR, PATIENT NO S/S PAIN, REPOSITIONED PATIENT, YELLOW URINE DRAINING IN SIGALA WITHOUT COMPLICATIONS, WILL CONTINUE TO MONITOR, CALL LIGHT WITHIN REACH
[2019-12-13 18:52] VITALS: BP 151/54
--- NOTE | 2019-12-13 19:00 | NUR ---
RECEIVED REPORT FROM DAY NURSE PATIENT AMANDEEP AT THIS TIME, ABLE TO BED REDIRECTED.
[2019-12-14] VITALS (8 sets, daily range): BP systolic 126–179; BP diastolic 47–76
--- NOTE | 2019-12-14 | NUR ---
PATIENT ALERT TO SELF ONLY, SPEECH GARBLED, NO DISCOMFORTS NOTED, WITH INDWELLING SIGALA CATHETER DRAINING VINI COLORED URINE AT THIS TIME, CALL LIGHT AT REACH.
--- NOTE | 2019-12-14 05:15 | NUR ---
PATIENT TURNED AND REPOSTITIOND AT THIS TIME, RESTING IN BED, CALM, BED ALARM IN PLACE
--- NOTE | 2019-12-14 05:22 | NUR ---
PATIENT WAS SWEATING, BS TAKEN 195 AT THIS TIME.
--- NOTE | 2019-12-14 07:20 | NUR ---
REPORT RECEIVED FROM ABILIO DEUTSCH. PT RESTING SEMI FOWLERS WITH EYES CLOSED AND NO SIGNS OF DISTRESS. RESPIRATIONS EVEN AND UNALABORED ON ROOM AIR. SKIN HOT AND MOIST; TEMP OF 100.7. BP 179/65 HR 79. LUNGS CLEAR WITH SOME EXPIRATORY RHONCHI ANTERIORLY. SCATTERED ECCHYMOSIS TO BUE. SAFETY MEASURES IN PLACE. CALL LIGHT WITHIN REACH.
--- NOTE | 2019-12-14 08:00 | NUR ---
RT AT BEDSIDE FOR EKG TO CONFIRM RHYTHM CHANGE TO AFIB RVR HEART RATE IN THE 150'S. FORREST CROWE NOTIFIED. AM MEDS GIVEN INCLUDING TOPROL. WILL REASSESS.
--- NOTE | 2019-12-14 08:54 | NUR ---
HEART RATE IMPROVED AFTER MEDICATOINS; NOW RANGING FROM 120S-130S. NEW ORDER RECEIVED FOR CARDIZEM IVP.
--- NOTE | 2019-12-14 09:16 | NUR ---
CARDIZEM 10MG PUSHED WITH EXECUTIVE SEARCH CONSULTANT WATCHING HEART RATE. AFTER PUSH HEART RATE DECREASED FROM 88-105; REMAINS A FIB.
--- NOTE | 2019-12-14 12:00 | NUR ---
PT SITTING UP IN; ALERT WITH CONFUSION. IV SITE APPEARS HEALTHY AND FLUSHES. RESPOSITION SELF IN BED. HEART CONTROLLED IN THE 80S-90S. NEEDS ARE ANTICIPATED BY STAFF.
--- NOTE | 2019-12-14 16:18 | NUR ---
VERBAL CONSENT OBTAINED FROM SISTER CINTIA (NICK) TO RECEIVE MEDICAL RECORDS FROM [facility].
--- NOTE | 2019-12-14 16:29 | NUR ---
PT FREQUENTLY YELLING OUT LOUDLY. REPOSITIONED AND NO INCONTIENCE NOTED. SIGALA DRAINING CLEAR YELLOW URINE.
--- NOTE | 2019-12-14 19:00 | NUR ---
RECEIVED REPORT FROM DAY NURSE PATIENT RESTING IN BED, NO DISCOMFORTS NOTED AT THIS TIME.
--- NOTE | 2019-12-14 22:25 | NUR ---
RECEIVED CALL FROM ED ABOUT PATIENT ON AFIB RVR 150'S WILL NOTIFY INTERNET MARKETING EXECUTIVE.
--- NOTE | 2019-12-14 22:30 | NUR ---
PATIENT TURNED AND REPOSITIONED
--- NOTE | 2019-12-14 22:45 | NUR ---
CALLED DR. THOMPSON AND INFORMED ABOUT PATIENT HR 150'S WITH ORDERS MADE.
--- NOTE | 2019-12-15 03:12 | NUR ---
PATIENT RESTING IN BED EYES CLOSED, EVEN UNLABORED BREATHING CALL LIGHT AT REACH.
[2019-12-15 03:40] VITALS: BP 128/58
[2019-12-15 05:25] LABS: HEMATOCRIT 29.4 % (37.0-47.0); MEAN CELL VOLUME 91.9 fL CALC (80.0-100.0); MEAN CORPUSCULAR HGB 31.3 pG CALC (26.0-32.0); RED BLOOD COUNT 3.2 mill/uL (4.20-5.60); RED CELL DISTRI WIDTH 13.1 % (11.5-15.5)
[2019-12-15 05:43] LABS: ANION GAP 8 (6-22 (CALC)); BUN 27 mg/dL (8-23); BUN/CREATININE RATIO 30 (12-20 (CALC)); CARBON DIOXIDE 21 mmol/l (22-30); CHLORIDE 110 mmol/l (95-108); CREATININE 0.9 mg/dL (0.5-1.0); GFR > 60 ML/MIN (>=60 (CALC)); GFR FOR AFR.AMER. > 60 ML/MIN (>=60 (CALC)); MAGNESIUM 1.9 mg/dL (1.6-2.3); POTASSIUM 3.5 mmol/l (3.5-5.1); SODIUM 136 mmol/l (137-146)
--- NOTE | 2019-12-15 07:00 | NUR ---
SHIFT CHANGE REPORT, PT AWAKE AND ALERT, CONFUSED, DOES NOT RESPOND VERBALLY, DOEN NOT SEEM TO BE IN ANY DISTRESS, TELE MONITOR IN PLACE, CALL ESPARZA IN REACH AND BED ALARM ON.
[2019-12-15 08:04] VITALS: BP 149/62
--- NOTE | 2019-12-15 09:15 | NUR ---
COLLAR STAY FUSER TENDER REPORTED HR IN 120'S-150'S, ON ASSESSMENT PT FOUND EATING AND COUGHING FROM WHAT APPEARS TO BE POSSIBLE CHOCKING ON FOOD, MONITORED UNTIS COUGHING SUBSIDED, HEART RATE DOWN TO 105, WILL CONTINUE TO MONITOR.
[2019-12-15 10:55] VITALS: BP 134/72
--- NOTE | 2019-12-15 12:41 | NUR ---
EMD TEACHER CALLED, REPORTED HR @ 13'S-150'S AT THIS TIME, PT BEING ASSESSED NOW, EATING MEAL, NO VISIBLE SIGN DISCOMFORT, WILL CONTINUE TO MONITOR.
--- NOTE | 2019-12-15 13:05 | NUR ---
DIVISION TOLL WIRE CHIEF NOTIFIED OF RATE/RHYTHM, SAID WILL WRITE ORDER FOR IV CARDIZEM BUT TO WAIT UNTIL AFTER FINISHED EATING, REASESS THEN ADDRESS.
[2019-12-15 13:48] VITALS: BP 143/58
[2019-12-15 15:47] VITALS: BP 142/61
--- NOTE | 2019-12-15 18:24 | NUR ---
NOHEMY FROM ED REPORTED HR IN 120'S-170'S, PT IS EATING, CRYING STATING SHE STATES SHE CANT EAT, THESE EPISODES HAPPEN EVERY TIME SHE EATS, MORTGAGE LOAN OFFICER AWARE OF SITUATION.
--- NOTE | 2019-12-15 18:42 | NUR ---
ER REPORTING HR 110-140'S AT THIS TIME, PT SITTING UP IN BED SCREAMING.
[2019-12-15 20:50] VITALS: BP 151/69
--- NOTE | 2019-12-15 20:51 | NUR ---
PT YELLS OUT. DENIES PAIN/ DISCOMFORT WHEN ASKED. DENIES NEEDS. REPOSITIONED FOR COMFORT. MEDICATED FOR COMFORT. TOLERATED PILLS WHOLE IN PUDDING. ATE 50% OF PUDDING CUP AND DRANK SOME SIPS OF WATER. CALL ESPARZA IN REACH. ITEMS IN REACH. BED LOCKED IN LOW POSITION W/ TOP BEDRAILS UPX2. BEDSIDE GLUCOSE CHECK 177. VS- 97.3 TYMPANIC. NIBP 151/69mmHg LUE/SUPINE. 107bpm. RR 18/MIN. 98%SPO2 ON ROOM AIR.
--- NOTE | 2019-12-16 00:15 | NUR ---
PT APPEARS TO BE SLEEPING COMFORTABLY. RESP REG & UNLABORED. NO APPARENT DISTRESS. CALL ESPARZA REMAINS WITHIN REACH. FALL AND SAFETY INTERVENTIONS REMAIN IN PLACE.
--- NOTE | 2019-12-16 04:05 | NUR ---
PT SLEEPING, APPEARS COMFORTABLE AND IN NO DISTRESS. RESP REG AND UNLABORED. CALL ESPARZA REMAINS WITHIN REACH. BED ALARM ON. BED LOCKED IN LOW POSITION WITH TOP BED RAILS UP X2. ITEMS WITHIN REACH.
[2019-12-16 06:01] VITALS: BP 159/70
--- NOTE | 2019-12-16 07:45 | NUR ---
PATIENT A/O X1, NO S/S RESP DISTRESS, PATIENT ON ROOM AIR, PATIENT HAS NO C/O PAIN, PATIENT TOTAL CARE PATIENT, PATIENT HAS ISSA AKA, PATIENT YELLOW URINE DRAINING INTO SIGALA, WILL CONTINUE TO MONITOR PATIENT, CALL LIGHT WITHIN REACH
[2019-12-16 10:16] VITALS: BP 150/57
[2019-12-16 11:05] VITALS: BP 148/92
--- NOTE | 2019-12-16 12:15 | NUR ---
PATIENT ALERT WITH CONFUSION, PATIENT NO C/O PAIN, NO S/S RESP DISTRESS, PATIENT ON ROOM AIR, PATIENT CONTINUES TO YELL "HELP" ASSIGN NURSE ASSESS PATIENT, CONFUSION PATIENT DID NOT KNOW THE REASON WHY SHE WAS YELLING, PATIENT POSITION CHANGE FREQUENTLY, WILL CONTINUE TO MONITOR TO MONITOR PATIENT, CALL LIGHT WITHIN REACH
[2019-12-16 15:47] VITALS: BP 149/53
--- NOTE | 2019-12-16 16:08 | NUR ---
PATIENT HEAD OF BED ELEVATED, PATIENT ALERT WITH CONFUSION, PATIENT NO C/O PAIN, PATIENT HEART RHYTHM IS IN CONTROLLED AFIB, WILL CONTINUE TO MONITOR PATIENT, CALL LIGHT WITHIN REACH
[2019-12-16 18:49] VITALS: BP 157/63
--- NOTE | 2019-12-16 20:30 | NUR ---
PROJECT CONSULTANT REPORTS FINGER STICK GLUCOSE OF 59. ON ASSESMENT PT APPEARS ASYMPTOMATIC. SITTING UP IN BED, AWAKE AND ALERT. D10% 250ML HUNG OVER 15 MINUTES. PT FED PUDDING CUP AND ATE ENTIRE CUP.
--- NOTE | 2019-12-16 22:55 | NUR ---
BEDSIDE GLUCOSE FINGER STICK RECHECKED, GLUCOSE IS 128. PT IS CONFUSED AND MORE ALERT. YELLING OUT. DENIES DISCOMFORT OR NEEDS. CANNOT EXPLAIN WHY SHE IS YELLING. UNABLE TO REDIRECT PT TO STOP YELLING.
[2019-12-16 23:47] VITALS: BP 154/78
[2019-12-17] VITALS (7 sets, daily range): BP systolic 143–180; BP diastolic 52–74
--- NOTE | 2019-12-17 00:10 | NUR ---
PER Melissa PIZANO PT CONVERTED FROM AFIB TO SR @ THIS TIME. PT IS CALM, AWAKE. LAYING IN BED WATCHING TV.
--- NOTE | 2019-12-17 00:30 | NUR ---
ORDERED ROUTINE EKG FOR RYTHM CHANGE. SPOKE Gerry SPAIN.
--- NOTE | 2019-12-17 01:26 | NUR ---
PT HAS STARTED YELLING AGAIN. CAN BE HEARD FROM NURSES STATION. CONTINUES TO DENY PAIN OR DISCOMFORT OR TO BE ABLE TO EXPLAIN WHY SHE IS YELLING. UNABLE TO REDIRECT PT TO STOP YELLING.
--- NOTE | 2019-12-17 04:52 | NUR ---
FILM RENTAL CLERK REPORTS B/P 180/74mmHg, MANUAL RECHECK 190/60mmHg. PRN CLONIDINE GIVEN, SEE NOV.
[2019-12-17 05:16] LABS: HEMATOCRIT 29.2 % (37.0-47.0); HEMOGLOBIN 9.7 g/dl (12.0-16.0); MEAN CORPUSCULAR HGB 30.9 pG CALC (26.0-32.0); MEAN CORPUSCULAR HGB CONC 33.2 g/dL CAL (32.0-36.0); RED BLOOD COUNT 3.14 mill/uL (4.20-5.60); RED CELL DISTRI WIDTH 13.1 % (11.5-15.5)
[2019-12-17 05:42] LABS: ANION GAP 9 (6-22 (CALC)); BUN 32 mg/dL (8-23); BUN/CREATININE RATIO 42 (12-20 (CALC)); CARBON DIOXIDE 22 mmol/l (22-30); CHLORIDE 110 mmol/l (95-108); CREATININE 0.8 mg/dL (0.5-1.0); GFR > 60 ML/MIN (>=60 (CALC)); GFR FOR AFR.AMER. > 60 ML/MIN (>=60 (CALC)); MAGNESIUM 2.2 mg/dL (1.6-2.3); SODIUM 136 mmol/l (137-146)
--- NOTE | 2019-12-17 05:54 | NUR ---
B/P RECHECK 150/61mmHg
--- NOTE | 2019-12-17 08:10 | NUR ---
PATIENT A/OX2, NO C/O PAIN, NO S/S RESP DISTRESS, PATIENT ON ROOM AIR, PATIENT HEAD OF BED ELEVATED, PATIENT HEART RHYTHM IN NORMAL SINUS PATIENT CONVERTED FROM AFIB TO NORMAL SINUS THE PRIOR SHIFT, PATIENT HAS NO BOWEL MOVEMENT GREATER THAT THREE DAYS, TREATED PATIENT CONSTIPATION PER MD ORDERS, WILL CONTINUE TO MONITOR PATIENT, CALL LIGHT WITHIN REACH
--- NOTE | 2019-12-17 19:40 | NUR ---
PATIENT A/OX2, NO C/O PAIN, NO S/S RESP DISTRESS, PATIENT ON ROOM AIR, PATIENT HEART RHYTHM IN NORMAL SINUS RHYTHM, PATIENT HAD NO BOWEL MOVEMENT IN GREATER THAN THREE DAYS, MONUMENT LETTERER ORDER DULCOLAX SUPP, ASSIGN ATTEMPT TO ADMINISTER SUPPOSITORY PATIENT TURN TO SIDE PATIENT HAD AN EXTRA LARGE BOWEL MOVEMENT, ASSIGN DID NOT GIVE SUPPOSITORY
--- NOTE | 2019-12-17 21:20 | NUR ---
PHYISCAL ASSESMENT COMPLETE. PLAN OF CARE REVIEWED W/ PT. WILL NEED FREQUENT RE-ORIENTATION SECONDARY TO COGNITIVE LIMITATIONS. PT TOLEREATED HS MEDS WHOLE IN PUDDING. COMPLETED ENTIRE PUDDING CUP AND SOME SIPS OF WATER. PT DENIES FURTHER NEEDS @ THIS TIME. BED LOCKED IN LOW POSITION W/ BEDRAILS UPX2. ITEMS WITHIN REACH. CALL ESPARZA WITHIN REACH. AGREES TO CALL PRN.
[2019-12-18] VITALS (8 sets, daily range): BP systolic 102–180; BP diastolic 48–99
--- NOTE | 2019-12-18 00:05 | NUR ---
PT APPEARS TO BE SLEEPING COMFORTABLY. NO APPARENT DISTRESS. RESP REGULAR & UNLABORED. BED REMAINS LOCKED IN LOW POSITION W/ BEDRAILS UPX2. ITEMS REMAIN WITHIN REACH. CALL ESPARZA REMAINS WITHIN REACH.
--- NOTE | 2019-12-18 00:50 | NUR ---
KEIRY IN ER REPORTS PT SB W/ RATE @ 40'S NON-SUSTAINED. PT IS SLEEPING AND APPEARS COMFORTABLE AND IN NO DISTRESS. RESP REG AND UNLABORED. WAKES WHEN GENTLY SHOOK AND NAME CALLED BUT REMAINS DROWSY. FINGER STICK GLUCOSE 91. Sp02 99% ON ROOM AIR. LAST B/P 147/63mmHg. PT NOTED TO BE SOILED, PT BATHED AND LINENS/GOWN CHANGED. SECONDARY IV TO LFA #20G INSERTED, X1 ATTEMPT. COPY OF MONITOR STRIPS ON CHART. WILL CON'T TO MONITOR.
--- NOTE | 2019-12-18 04:55 | NUR ---
CRIBBING SETTER REPORTS NIBP 180/66mmHg, MANUAL RECHECK IS 172/48mmHg. PRN APRESOLINE 10MG IV ADMINISTERED PER PARAMATERS. SEE NOV.
--- NOTE | 2019-12-18 05:30 | NUR ---
NIBP RECHECK IS 137/58mmHg W/ HR 64bpm.
--- NOTE | 2019-12-18 07:54 | NUR ---
PT SITTING IN BED WATCHING TV. A&O TO SELF. REORIENTED PT TO TIME AND PLACE. NO DISTRESS NOTED. SIGALA CATH DRAINING VIA GRAVITY WITH CLEAR YELLOW URINE NOTED. NO OTHER NEEDS AT THIS TIME. ASSESSMENT COMPLETED. CALL LIGHT IN REACH. CONTINUE TO MONITOR.
--- NOTE | 2019-12-18 11:29 | NUR ---
BP 178/99 HR 74 CLONIDINE PO GIVEN. WILL REASSESS BP
--- NOTE | 2019-12-18 12:45 | NUR ---
BP 150/53 HR 68. CONTINUE TO MONITOR
--- NOTE | 2019-12-18 14:12 | NUR ---
DRESSING TO COCCYX APPLIED, NO DRAINAGE NOTED. PT TOLERATED WELL
--- NOTE | 2019-12-18 19:22 | NUR ---
REPORT FROM JAY PARKER. PT NOTED RESTING IN BED. ALERT TO SELF. NO APPARENT DISTRESS NOTED. AIR MATTRESS FUNCTIONING PROPERLY. IV SITE APPEAR HEALTHY. SIGALA PATENT DRAINING TO GRAVITY. DRESSING NOTED TO COCCYX CDI. CALL LIGHT WITHIN REACH. WILL CONTINUE TO MONITOR.
--- NOTE | 2019-12-18 21:23 | NUR ---
COMPLETE BED BATH WITH SIGALA CARE AND LINEN CHANGE PROVIDED. PT REPOSITIONED WITH PILLOWS. PT TOLERATED WELL. DIABETIC SNACK PROVIDED. CALL LIGHT WITHIN REACH. WILL CONTINUE TO MONITOR.
--- NOTE | 2019-12-19 01:49 | NUR ---
PT RESTING IN BED WITH EYES CLOSED. NO APPARENT DISTRESS NOTED. CALL LIGHT WITHIN REACH. WILL CONTINUE TO MONITOR.
[2019-12-19 03:55] VITALS: BP 152/52
--- NOTE | 2019-12-19 04:50 | NUR ---
PT RESTING IN BED WITH EYES CLOSED. PT WAKES EASILY. NO APPARENT DISTRESS NOTED. PT REPOSITIONED WITH PILLOWS. AIR MATTRESS FUNCTIONING PROPERLY. SIGALA PATENT DRAINING TO GRAVITY. CALL LIGHT WITHIN REACH. WILL CONTINUE TO MONITOR.
[2019-12-19 07:59] VITALS: BP 152/47
--- NOTE | 2019-12-19 09:00 | NUR ---
PT SEEN AWAKE, ALERT, SLIGHTLY CONFUSED PER NORMAL FOR HER. LUNGS CLEAR, RA. PT CALLS OUT, BUT DOES NOT APPEAR TO NEED ANYTHING.
[2019-12-19 10:45] VITALS: BP 163/43
--- NOTE | 2019-12-19 13:00 | NUR ---
PT CONTINUES BEFORE, SITTING UP IN THE BED, LOOKING AT HALLWAY TRAFFIC. SHE CALLS OUT OCCASIONALLY, BUT CAN BE PREOCCUPIED WITH MEALS FOR A COUPLE OF HOURS AT A TIME.
[2019-12-19 15:05] VITALS: BP 147/64
--- NOTE | 2019-12-19 17:00 | NUR ---
PT REPOSITIONED IN BED, COCCYX DRESSING REMOVED AND PICTURE TAKEN. SKIN APPEARS DISCOLORED, BUT THERE IS NO INTERRUPTION. PT SET UP FOR MEAL AFTER CALLING WITHOUT CAUSE FOR SOME TIME.
--- NOTE | 2019-12-19 19:02 | NUR ---
REPORT FROM SARAH KNOX. PT SITTING UP IN BED EATING. ALERT TO SELF. NO APPARENT DISTRESS NOTED. PT DENIES ANY PAIN OR DISCOMFORT AT THIS TIME. IV SITE APPEARS HEALTHY. CHARCOAL BURNER BEEHIVE KILN IN PLACE. SIGALA CATHETER PATENT DRAINING TO GRAVITY. AIR MATTRESS NOTED. DISCUSSED POC. CALL LIGHT WITHIN REACH. WILL CONTINUE TO MONITOR.
[2019-12-19 19:10] VITALS: BP 146/47
[2019-12-19 20:21] LABS: URINE BILIRUBIN - DIPSTICK NEGATIVE (NEGATIVE); URINE BLOOD DIPSTICK NEGATIVE (NEGATIVE); URINE CLARITY CLEAR; URINE COLOR YELLOW; URINE GLUCOSE - DIPSTICK NEGATIVE (NEGATIVE); URINE KETONE NEGATIVE (NEGATIVE); URINE LEUK ESTERASE NEGATIVE (Negative); URINE NITRITE - DIPSTICK NEGATIVE (Negative); URINE PROTEIN - DIPSTICK TRACE mg/dL (NEG-TRACE); URINE SPECIFIC GRAVITY 1.015; URINE UROBILINOGEN - DIPSTICK 0.2 E.U./dL (0.2)
--- NOTE | 2019-12-19 23:30 | NUR ---
PT RESTING IN BED WITH EYES CLOSED. NO APPARENT DISTRESS NOTED. WAKES EASILY TO VERBAL STIMULI. IV FLUSHED, IV ABT INFUSING WITHOUT DIFFICULTY. SIGALA REMAINS PATENT. CALL LIGHT WITHIN REACH. WILL CONTINUE TO MONITOR.
[2019-12-20 00:15] VITALS: BP 167/63
[2019-12-20 00:43] VITALS: BP 155/52
--- NOTE | 2019-12-20 03:54 | NUR ---
PT RESTING IN BED WITH EYES CLOSED. NO APPARENT DISTRESS NOTED. SIGALA REMAINS PATENT. AIR MATTRESS FUNCTIONING PROPERLY. CALL LIGHT WITHIN REACH. WILL CONTINUE TO MONITOR.
[2019-12-20 04:05] VITALS: BP 154/56
[2019-12-20 07:59] VITALS: BP 134/62
--- NOTE | 2019-12-20 08:04 | NUR ---
PT IS RESTING IN THE BED, NO EVIDENCE OF DISTRESS. PT WITH BREAKFAST IN FRONT OF HER, HAS NOT WAKENED ENOUGH TO ENJOY.
[2019-12-20] MEDS ORDERED: QUETIAPINE FUMA25 MG PO (10:28)
--- NOTE | 2019-12-20 13:04 | NUR ---
PT LEAVES AT THIS TIME FOR [place] [facility].
--- NOTE | 2019-12-20 13:10 | NUR ---
REPORT CALLED AT THIS TIME. PT LEAVES OUR FACILITY IN STABLE CONDITION.
== END 2019-12-20 13:00 | DRG 689 ==
PROVIDERS: Emergency Medicine; Internal Medicine; Nurse Practitioner Family; ADMIT Internal Medicine
PROC: 0T9B70Z Drainage of Bladder with Drainage Device, Via Natural or Artificial Opening (ICD-10-PCS; principal; 2019-12-13)
DX: N39.0 Urinary tract infection, site not specified (principal); G93.41 Metabolic encephalopathy; I13.0 Hypertensive heart and chronic kidney disease with heart failure and stage 1 through stage 4 chronic kidney disease, or unspecified chronic kidney disease; I42.9 Cardiomyopathy, unspecified; E11.22 Type 2 diabetes mellitus with diabetic chronic kidney disease; E86.0 Dehydration; I50.9 Heart failure, unspecified; N18.3 Chronic kidney disease, stage 3 (moderate); J43.9 Emphysema, unspecified; E11.65 Type 2 diabetes mellitus with hyperglycemia; E11.51 Type 2 diabetes mellitus with diabetic peripheral angiopathy without gangrene; I48.0 Paroxysmal atrial fibrillation; F03.90 Unspecified dementia, unspecified severity, without behavioral disturbance, psychotic disturbance, mood disturbance, and anxiety; K59.00 Constipation, unspecified; I25.10 Atherosclerotic heart disease of native coronary artery without angina pectoris; F17.200 Nicotine dependence, unspecified, uncomplicated; B96.4 Proteus (mirabilis) (morganii) as the cause of diseases classified elsewhere; Z87.440 Personal history of urinary (tract) infections; Z89.612 Acquired absence of left leg above knee; Z89.611 Acquired absence of right leg above knee; Z79.4 Long term (current) use of insulin

== ENCOUNTER 2020-01-19 | Emergency (ER) | payer MEDICARE, OTHER ==
[~2020-01-19] MED LIST changes: +CATAPRES0.2 MG PO; +HUMALOG100 UNIT/M SC; +IPRATROPIU0.5 MG/3 M NEB; +TOPROL XL PO
[2020-01-19 11:50] LABS: HEMATOCRIT 33.1 % (37.0-47.0); HEMOGLOBIN 10.3 g/dl (12.0-16.0); IMMATURE GRANULOCYTES 0.3 % (0.0-5.0); MEAN CORPUSCULAR HGB 31.6 pG CALC (26.0-32.0); MEAN CORPUSCULAR HGB CONC 31.1 g/dL CAL (32.0-36.0); NEUT# 5.78 thou/uL (2.00-7.15); RED BLOOD COUNT 3.26 mill/uL (4.20-5.60); RED CELL DISTRI WIDTH 15.7 % (11.5-15.5)
[2020-01-19 12:08] LABS: MEAN CELL VOLUME 101.5 fL CALC (80.0-100.0)
[2020-01-19 12:13] LABS: ALBUMIN 3.4 g/dL (3.2-5.0); ALKALINE PHOSPHATASE 78 u/l (38-126); ANION GAP 12 (6-22 (CALC)); BILIRUBIN, TOTAL 0.5 mg/dL (0.0-1.4); BUN 22 mg/dL (8-23); BUN/CREATININE RATIO 30 (12-20 (CALC)); CARBON DIOXIDE 21 mmol/l (22-30); CHLORIDE 114 mmol/l (95-108); CREATININE 0.7 mg/dL (0.5-1.0); GFR > 60 ML/MIN (>=60 (CALC)); GFR FOR AFR.AMER. > 60 ML/MIN (>=60 (CALC)); POTASSIUM 4.3 mmol/l (3.5-5.1); SGOT/AST 63 u/l (9-36); TOTAL PROTEIN 7.1 g/dL (6.3-8.2)
[2020-01-19 12:16] LABS: SODIUM 143 mmol/l (137-146)
[2020-01-19 12:25] LABS: MYOGLOBIN 57 ng/mL (0 - 62)
[2020-01-19] MEDS ORDERED: NOVOLOG FL100 UNIT/M SC (12:41)
[2020-01-19] MEDS ORDERED: AMLODIPINE BESY10 MG PO (12:42)
[2020-01-19] MEDS ORDERED: TOPROL XL25 M1 PO (12:42)
[2020-01-19] MEDS ORDERED: LISINOPRIL5 MG PO (12:43)
[2020-01-19] MEDS ORDERED: ATORVASTATIN CA40 MG PO (12:43)
[2020-01-19] MEDS ORDERED: CLONIDINE0.2 MG PO (12:43)
[2020-01-19] MEDS ORDERED: FUROSEMIDE20 MG PO (12:43)
== END 2020-01-19 17:20 | disposition home or self-care (01) ==
PROVIDERS: Emergency Medicine
DX: E11.649 Type 2 diabetes mellitus with hypoglycemia without coma (principal); I48.91 Unspecified atrial fibrillation; Z89.612 Acquired absence of left leg above knee; Z89.611 Acquired absence of right leg above knee; Z79.4 Long term (current) use of insulin

== ENCOUNTER 2020-04-09 09:47 | Emergency (ER) | payer MEDICARE, OTHER ==
[~2020-04-09] VITALS: Ht 152.4 cm; Wt 50.0 kg
[~2020-04-09 09:47] MED LIST changes: +ATORVASTATIN CA40 MG PO; +CLONIDINE0.2 MG PO; +LISINOPRIL5 MG PO; +TOPROL XL25 M1 PO
[2020-04-09 10:16] LABS: HEMATOCRIT 31.6 % (37.0-47.0); HEMOGLOBIN 10.8 g/dl (12.0-16.0); IMMATURE GRANULOCYTES 0.4 % (0.0-5.0); MEAN CORPUSCULAR HGB 30.3 pG CALC (26.0-32.0); MEAN CORPUSCULAR HGB CONC 34.2 g/dL CAL (32.0-36.0); NEUT# 3.02 thou/uL (2.00-7.15); RED BLOOD COUNT 3.57 mill/uL (4.20-5.60); RED CELL DISTRI WIDTH 13.6 % (11.5-15.5); URINE BILIRUBIN - DIPSTICK NEGATIVE (NEGATIVE); URINE BLOOD DIPSTICK SMALL (NEGATIVE); URINE COLOR YELLOW; URINE GLUCOSE - DIPSTICK >=1000 mg/dL (NEGATIVE); URINE KETONE TRACE mg/dL (NEGATIVE); URINE NITRITE - DIPSTICK NEGATIVE (Negative); URINE PROTEIN - DIPSTICK 100 mg/dL (NEG-TRACE); URINE SPECIFIC GRAVITY 1.025; URINE UROBILINOGEN - DIPSTICK 0.2 E.U./dL (0.2)
[2020-04-09 10:17] LABS: MEAN CELL VOLUME 88.5 fL CALC (80.0-100.0)
[2020-04-09 10:19] LABS: URINE LEUK ESTERASE TRACE (NEGATIVE)
[2020-04-09 10:20] LABS: URINE BACTERIA FEW hpf; URINE EPITHELIAL CELLS MODERATE EPI/hpf (0-FEW); URINE MUCUS MODERATE hpf (NONE-FEW); URINE WBC 0-2 WBC/hpf (0-5)
[2020-04-09 10:31] LABS: ALBUMIN 3.6 g/dL (3.2-5.0); BILIRUBIN, TOTAL 0.4 mg/dL (0.0-1.4); CREATININE 1.6 mg/dL (0.5-1.0); POTASSIUM 3.7 mmol/l (3.5-5.1); TOTAL PROTEIN 6.7 g/dL (6.3-8.2)
[2020-04-09] MEDS ORDERED: KEFLEX500 MG PO (13:50)
[2020-04-09 17:25] VITALS: BP 119/53
== END 2020-04-09 17:26 | disposition home or self-care (01) ==
LOC: ED 09:47
PROVIDERS: Student in an Organized Health Care Education/Training Program
DX: E11.65 Type 2 diabetes mellitus with hyperglycemia (principal); N39.0 Urinary tract infection, site not specified; I48.91 Unspecified atrial fibrillation; Z87.440 Personal history of urinary (tract) infections; Z89.612 Acquired absence of left leg above knee; Z89.611 Acquired absence of right leg above knee; Z79.84 Long term (current) use of oral hypoglycemic drugs

== ENCOUNTER 2020-06-20 17:06 | Inpatient (IN) | payer MEDICARE, OTHER ==
[~2020-06-20] VITALS: Ht 152.4 cm; Wt 51.0 kg
--- NOTE | 2020-06-20 17:06 | NUR ---
PATIENT TO ROOM VIA EMS AND PHYSICIAN AT BEDSIDE FOR EVAL
--- NOTE | 2020-06-20 18:03 | NUR ---
PT CALLS OUT WHEN NURSE OUT OF ROOM, WHEN NURSE ENTERS AND ASKS PT WHY SHE IS SCREAMING OUT PT STATES "BECAUSE I WANT TOO" WHEN ASKED IF SHE WATS OR NEEDS ANYTHING SHE SAYS NOTHING, PT POLITELY ASKED TO STOP SCREAMING CALL ESPARZA REMAINS WITHIN REACH
[2020-06-20 18:06] LABS: HEMATOCRIT 28.6 % (37.0-47.0); HEMOGLOBIN 8.9 g/dl (12.0-16.0); IMMATURE GRANULOCYTES 0.2 % (0.0-5.0); MEAN CORPUSCULAR HGB 29.4 pG CALC (26.0-32.0); MEAN CORPUSCULAR HGB CONC 31.1 g/dL CAL (32.0-36.0); NEUT# 2.79 thou/uL (2.00-7.15); RED BLOOD COUNT 3.03 mill/uL (4.20-5.60); RED CELL DISTRI WIDTH 13.8 % (11.5-15.5)
[2020-06-20 18:07] LABS: MEAN CELL VOLUME 94.4 fL CALC (80.0-100.0)
[2020-06-20 18:21] LABS: ALKALINE PHOSPHATASE 76 u/l (38-126); ANION GAP 6 (6-22 (CALC)); BUN 25 mg/dL (8-23); BUN/CREATININE RATIO 31 (12-20 (CALC)); CARBON DIOXIDE 27 mmol/l (22-30); CHLORIDE 110 mmol/l (95-108); CREATININE 0.8 mg/dL (0.5-1.0); GFR > 60 ML/MIN (>=60 (CALC)); GFR FOR AFR.AMER. > 60 ML/MIN (>=60 (CALC)); POTASSIUM 3.7 mmol/l (3.5-5.1); SGOT/AST 27 u/l (9-36); SODIUM 140 mmol/l (137-146); TOTAL PROTEIN 5.8 g/dL (6.3-8.2)
[2020-06-20 18:33] LABS: MYOGLOBIN 57 ng/mL (0 - 62)
--- NOTE | 2020-06-20 18:34 | NUR ---
PT UNABLE TO TELL STAFF WHAT HOME MEDICATIONS SHE TAKES OR [facility] PHARMACY TO USE, AND NO FAMILY AVAILABLE TO ASSIST WITH THIS INFO. PHARACY CONSULT ORDERED
--- NOTE | 2020-06-20 18:36 | NUR ---
PT CONTINUES TO SCREAM OUT WHEN EVER STAFF NOT AT BEDSIDE. POLITELY AGAIN ASKED TO STOP PT NODS THEN STARTS SOON STAFF LEAVES THE ROOM.
[2020-06-20 18:37] LABS: ALBUMIN 2.6 g/dL (3.2-5.0); BILIRUBIN, TOTAL 0.2 mg/dL (0.0-1.4)
--- NOTE | 2020-06-20 19:02 | NUR ---
RADIOLOGY AT BEDSIDE.
--- NOTE | 2020-06-20 20:25 | NUR ---
DR FULTON NTFD OF BP.
--- NOTE | 2020-06-20 21:10 | NUR ---
REPORT CALLED TO [facility]. WILL SEND UP WHEN PT CATHED FOR URINE.
--- NOTE | 2020-06-20 22:17 | NUR ---
PT CATHED WITH ASSIST OF 2 NURSES. 70 CC OF VINI URINE OBTAINED. PT CLEANSED AND CHANGED DIAPER. PT WAS INCONT OF SMALL AMT OF URINE AND STOOL...SOME IMPACTED. SOME STOOL REMOVED FROM RECTUM. LINENS CHANGED. PT TO FLOOR VIA STRETCHER WITH O2 @2 LPM. PT TRANSFERRED TO BED UPON ARRIVAL TO FLOOR.
[2020-06-20 22:28] VITALS: BP 180/60
--- NOTE | 2020-06-20 22:28 | NUR ---
PT ARRIVED TO UNIT AND PLACED IN RESP SEE DUE TO POS IgG. PT ARRIVED VIA STRETCHER ACCOMPANIED BY ED NURSE. PT APPEARS TO BE IN STABLE CONDITION AT THIS TIME. PT TRANSFERRED FROM STRETCHER TO BED W/OUT ISSUE, REPORTS MILD SOB AT THIS TIME. OXYGEN IS ON @2L FOR COMFORT TRANSFERRED FROM ED. AIDE IS IN W/PT AT THIS TIME OBTAINING V/S. MATERIALS MGMT TECH ORIENTED TO BED, LIGHTS, ROOM, CALL SYSTEM.
--- NOTE | 2020-06-20 22:30 | NUR ---
PT RECEIVED FROM ED TO ROOM 291. ARRIVES VIA STRETCHER AND TRANSFERED TO THE BED. PTS VITALS AND ASSESSMENT COMPLETED AT THIS TIME. PTS LUNG SOUNDS ARE DIMINISHED WITH SHALLOW RESPIRATIONS AT THIS TIME. HEART SOUNDS ARE HEARD IRREGULAR. PTS BOWEL SOUNDS ARE HYPO IN ALL QUARDERS. PT IS NON VERBAL ONLY NODDING OR SHAKING HER HEAD TO SOME QUESTONS. PT DENIES PAIN AT THIS TIME. ORIENTED TO UNIT, ROOM, CALL ESPARZA, LIGHTS, TV. WATER PROVIDED. PT INSTRUCTED TO CALL FOR NEEDS. CALL ESPARZA WITHIN REACH.
[2020-06-20 23:23] LABS: URINE BILIRUBIN - DIPSTICK NEGATIVE (NEGATIVE); URINE BLOOD DIPSTICK SMALL (NEGATIVE); URINE COLOR YELLOW; URINE GLUCOSE - DIPSTICK 100 mg/dL (NEGATIVE); URINE KETONE NEGATIVE (NEGATIVE); URINE NITRITE - DIPSTICK NEGATIVE (Negative); URINE PROTEIN - DIPSTICK >=300 mg/dL (NEG-TRACE); URINE SPECIFIC GRAVITY 1.025; URINE UROBILINOGEN - DIPSTICK 0.2 E.U./dL (0.2)
[2020-06-20 23:30] LABS: URINE LEUK ESTERASE NEGATIVE (NEGATIVE)
[2020-06-20 23:31] LABS: URINE BACTERIA MODERATE hpf; URINE EPITHELIAL CELLS MODERATE EPI/hpf (0-FEW)
[2020-06-20 23:32] LABS: URINE YEAST MANY hpf
[2020-06-20 23:40] VITALS: BP 166/62
--- NOTE | 2020-06-20 23:51 | NUR ---
ED CALLED TO REPORT 8 BEAT RUN OF V-TACH. ASSESSED PT TO BE STABLE AT THIS TIME. NO S/O DISTRESS, PT DENIES CP, PALPATATIONS. V/S ASSESSED 166/62, HR58, 02SAT LEVEL 100%2L. WARMER BLANKET PROVIDED FOR TEMP 96.8. WILL FOLLOW-UP WITH REASSESSMENT. IV ANTIBIOTIC THERAPY ADMINISTERED AT THIS TIME.
[2020-06-21] VITALS (7 sets, daily range): BP systolic 143–168; BP diastolic 47–60
--- NOTE | 2020-06-21 05:05 | NUR ---
PT SLEEPING IN BED IN NO APPARENT DISTRESS NOTED. IV SITE IS PATENT WITH FLUIDS INFUSING. CALL LIGHT IS WITHIN REACH; WILL CONTINUE TO MONITOR.
--- NOTE | 2020-06-21 07:10 | NUR ---
REPORT RECEIVED FROM ABILIO DORMAN.
--- NOTE | 2020-06-21 08:00 | NUR ---
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
--- NOTE | 2020-06-21 08:13 | NUR ---
PT note Patient is screened for PT intervention and it is felt she may benefit from OT consult if medical agrees
--- NOTE | 2020-06-21 11:12 | NUR ---
AT BEDSIDE PROVIDING WOUND CARE.
--- NOTE | 2020-06-21 11:35 | NUR ---
PT RESTING IN SEMI FOWLERS POSITION;RESPIRATIONS EVEN AND UNLABORED ON O2 @ 2L VIA NC;PT REMAINS NON-VERBAL;NO S/S OF DISTRESS NOTED;TELE MONITORING IN PLACE;ACCUCHECK 281,PT COVERED WITH SLIDING SCALE NOVOLOG PER ORDER;ASSESSMENT REMAINS UNCHANGED AT THIS TIME;ENCOURAGED TO CALL FOR ASSISTANCE IF NEEDED;CALL LIGHT IN REACH;WILL CONTINUE TO MONITOR
--- NOTE | 2020-06-21 12:10 | NUR ---
PT TRANSPORTED TO [facility] IN STABLE CONDITION VIA STRETCHER ACCOMPANIED BY WILLIAM CNA.
--- NOTE | 2020-06-21 12:19 | NUR ---
PT RETURNED TO MED/SURG ROOM 291 IN STABLE CONDITION VIA STRETCHER ACCOMPANIED BY RISHABH BARKER.
--- NOTE | 2020-06-21 16:16 | NUR ---
RECD CONSULT FOR MED REC, PT IS NOT RESPONSIVE, HAS NOT FILLED AT [facility] SINCE JANUARY. CONTACTED NEXT OF KIN, LEFT MESSAGE. WILL FOLLOW UP TOMORROW
--- NOTE | 2020-06-21 17:00 | NUR ---
PT RESTING IN SEMI FOWLERS POSITION,REMAINS NON-VERBAL CURRENTLY WITH SOME YELLING OUT AT TIMES;RESPIRATIONS EVEN AND UNLABORED ON O2 @ 2L VIA NC;NO D/D OF DISTRESS;TELE MONITORING IN PLACE;BOTH IV SITES REMAIN PATENT;ACCUCHECK 358, PT COVERED WITH SLIDING SCALE NOVOLOG PER ORDER;ASSESSMENT REMAINS UNCHANGED;ENCOURAGED TO CALL FOR ASSISTANCE IF NEEDED;CALL LIGHT IN REACH;WILL CONTINUE TO MONITOR
--- NOTE | 2020-06-21 20:04 | NUR ---
IV ANTIBIOTIC THERAPY ADMINISTERED AT THIS TIME. PT IS ALERT W/EYES OPEN, ASKING FOR WATER. UPON ENTERING ROOM, HER TRAY HAD BEEN PULLED FROM [facility] ONTO HER LAP ON THE BED AND DRINK SPILLED, BLANKET REMOVED AND RELACED. WATER PROVIDED W/ASSISTANCE. CALL LIGHT LEFT IN PLACE W/IN REACH.
--- NOTE | 2020-06-21 22:10 | NUR ---
B/P ASSESSED AND PT MEDICATED ORDERS PROVIDE. IV TO RAC FLUSHED/PATENT AND APPEARS HEALTHY. PT WAS YELLING OUT I ENTERED THE ROOM. WHEN ASKED IF SHE WAS OKAY SHE YELLED "WATER," A WATER BOTTLE AND CUP OF WATER W/PITCHER ARE WITHING PT'S REACH. COAL SAMPLE TESTER HAD JUST PRIOR BEEN ASSISTED DRINKING WATER, BUT ASSISTED PT TO DRINK 240CC OF ADDITIONAL WATER AT THIS TIME. I WALKED OUT TO OBTAIN SOMETHING AND RETURNED TO FIND PT USING BOTH OF HER HANDS DRINKING WATER FROM A WATER BOTTLE AND RECAPPING IT. PT ASKED FOR HER FOOD TRAY TO BE REPLACED IN FRONT OF HER. I LEFT PT EATING UPRIGHT IN BED W/REFILL OF WATER W/IN REACH. I ASSURED PT THAT I WOULD RETURN SHORTLY TO CHECK ON HER. PT APPEARS CALM AT THIS TIME.
[2020-06-22] VITALS: BP 149/78
--- NOTE | 2020-06-22 00:06 | NUR ---
PT SLEEPING QUIETLY. NO DISCOMFORT OBSERVED WILL CONTINUE TO MONITOR.
[2020-06-22 04:00] VITALS: BP 176/82
[2020-06-22 05:17] LABS: HEMATOCRIT 28.2 % (37.0-47.0); HEMOGLOBIN 8.7 g/dl (12.0-16.0); IMMATURE GRANULOCYTES 0.3 % (0.0-5.0); MEAN CELL VOLUME 94.9 fL CALC (80.0-100.0); MEAN CORPUSCULAR HGB 29.3 pG CALC (26.0-32.0); MEAN CORPUSCULAR HGB CONC 30.9 g/dL CAL (32.0-36.0); NEUT# 5.15 thou/uL (2.00-7.15); RED BLOOD COUNT 2.97 mill/uL (4.20-5.60); RED CELL DISTRI WIDTH 13.7 % (11.5-15.5)
[2020-06-22 05:37] LABS: ALBUMIN 2.3 g/dL (3.2-5.0); ALKALINE PHOSPHATASE 54 u/l (38-126); BILIRUBIN, TOTAL 0.2 mg/dL (0.0-1.4); BUN 42 mg/dL (8-23); BUN/CREATININE RATIO 33 (12-20 (CALC)); C-REACTIVE PROTEIN < 0.5 mg/dL (0-0.9); CARBON DIOXIDE 24 mmol/l (22-30); CHLORIDE 109 mmol/l (95-108); CREATININE 1.3 mg/dL (0.5-1.0); GFR 40 ML/MIN (>=60 (CALC)); GFR FOR AFR.AMER. 48 ML/MIN (>=60 (CALC)); SGOT/AST 21 u/l (9-36); SODIUM 134 mmol/l (137-146); TOTAL PROTEIN 5.1 g/dL (6.3-8.2)
[2020-06-22 05:38] LABS: ANION GAP 6 (6-22 (CALC)); POTASSIUM 4.9 mmol/l (3.5-5.1)
--- NOTE | 2020-06-22 07:50 | NUR ---
PER ANITRA IN MICRO, PRELIM BLOOD CX RESULTS SHOW GRAM POSITIVE COCCI IN 1 AEEROBIC BOTTLE. RESULTS CALLED TO [facility], NO NEW ORDERS RECD, LIKELY CONTAMINANT PT WBC WNL AND IS AFEBRILE. WILL FOLLOW UP WITH FINAL RESULTS
[2020-06-22 08:00] VITALS: BP 182/83
--- NOTE | 2020-06-22 09:00 | NUR ---
PT SEEN AT REST IN THE BED, ALERT BUT ANSWERS QUESTIONS WITH ONE WORD ANSWERS. LUNGS CLEAR BUT DIMINISHED, 2 LPM NC. PT YELLS OUT A LOT, BUT WHEN ASKED DOES NOT GIVE REASON FOR YELLING PER NO PAIN OR NEEDS OTHERWISE. BILATERAL AKA. EMS IV REMOVED THIS AM.
[2020-06-22 11:44] VITALS: BP 150/63
--- NOTE | 2020-06-22 13:28 | NUR ---
AT @1230 INSURANCE AND BENEFITS CLERK TECH IN ER CALLED TO CHECK ON PT, STATING THAT PT WAS IN V-FIB. PT WAS CHECKED ON, SEEN TO BE BLUE IN THE FACE, LESS RESPONSIVE THAN USUAL. RAPID RESPONSE WAS CALLED, SUBSEQUENTLY CODE TIEN WAS CALLED. DR WOLFF RESPONDED FROM ER, DIRECTED CODE. AFTER AT LEAST 30 MINUTES OF CPR AND MEDS, THERE WAS NO PULSE ACHIEVED, CODE CALLED AT 1315.
--- NOTE | 2020-06-22 14:30 | NUR ---
CODE SUMMARY 1245 NO PULSE 1247 NO PULSE, CPR 1249 NO PULSE, EPI 1251 NO PULSE, 134/86 1253 NO PULSE 1254 155/44 1255 PULSE CHECK 1300 EPI 1301 NO PULSE, V-FIB 1302 SHOCK 153/28 1303 CALCIUM GLUCONATE, PULSE CHECK, V-FIB, 200 CHARGE 1305 PULSE CHECK, V-FIB, NO PULSE, 200 1306 BICARB 1307 NO PULSE, PEA, V-FIB 1310 AMIODARONE 300 MG 1311 NO PULSE, PEA, EPI 1313 AMIODARONE 150 MG 1315 PEA, ASYSTOLE, TIME OF
--- NOTE | 2020-06-22 14:32 | NUR ---
1412--[facility] CONTACTED. 1433--[facility] CALLED BACK PT IS NOT A CANDIDATE FOR DONATION OF ORGANS OR EYES.
--- NOTE | 2020-06-22 17:52 | NUR ---
NOTIFIED [facility] OF NEED TO CONTACT FAMILY FOR NOTIFICATION. ADDRESS GIVEN FROM AMBULANCE REPORT OF [address] [facility] WILL DISPATCH AN OFFICER FOR NOTIFICATION.
--- NOTE | 2020-06-22 18:05 | NUR ---
[facility] NOTIFIED THIS DRYING ROOM ATTENDANT THAT [facility] JAZMIN NEXT OF KIN HAS BEEN NOTIFIED OF OF PATIENT. AT THIS TIME THIS DRYING ROOM ATTENDANT HAS BEEN UNABLE TO GET IN TOUCH WITH [facility] AT THE SAME NUMBER [facility] FOR INDICATION OF WHERE TO SEND BODY. ADMINISTRATION NOTIFIED.
--- NOTE | 2020-06-22 18:20 | NUR ---
FAMILY CALLED THIS TELEGRAPH OFFICE MANAGER AND STATED THAT THEY WISH FOR THE BODY TO GO TO [facility]. [facility] NOTIFIED AT THIS TIME.
== END 2020-06-22 13:15 | disposition expired | DRG 194 ==
LOC: ED 17:06 → ED-I 20:00 → ED 20:15 → MS2 20:16
PROVIDERS: Emergency Medicine; Nurse Practitioner; ADMIT Internal Medicine; ATTEND Internal Medicine
PROC: 5A12012 Performance of Cardiac Output, Single, Manual (ICD-10-PCS; principal; 2020-06-22)
PROC: 5A2204Z Restoration of Cardiac Rhythm, Single (ICD-10-PCS; 2020-06-22)
DX: J18.9 Pneumonia, unspecified organism (principal); I13.0 Hypertensive heart and chronic kidney disease with heart failure and stage 1 through stage 4 chronic kidney disease, or unspecified chronic kidney disease; I42.9 Cardiomyopathy, unspecified; G93.40 Encephalopathy, unspecified; I49.01 Ventricular fibrillation; I50.9 Heart failure, unspecified; E11.22 Type 2 diabetes mellitus with diabetic chronic kidney disease; N18.3 Chronic kidney disease, stage 3 (moderate); J43.9 Emphysema, unspecified; D63.8 Anemia in other chronic diseases classified elsewhere; E11.51 Type 2 diabetes mellitus with diabetic peripheral angiopathy without gangrene; E11.65 Type 2 diabetes mellitus with hyperglycemia; I48.91 Unspecified atrial fibrillation; F03.90 Unspecified dementia, unspecified severity, without behavioral disturbance, psychotic disturbance, mood disturbance, and anxiety; R76.8 Other specified abnormal immunological findings in serum; F17.200 Nicotine dependence, unspecified, uncomplicated; Z79.4 Long term (current) use of insulin; Z89.612 Acquired absence of left leg above knee; Z89.611 Acquired absence of right leg above knee; Z87.440 Personal history of urinary (tract) infections; Z20.828 Contact with and (suspected) exposure to other viral communicable diseases
CPT/HCPCS: G0378; Q9967